=== PATIENT | male | born 1965 ===

== ENCOUNTER 2017-09-14 13:06 | Inpatient (IN) | payer MEDICAID, OTHER ==
[2017-09-14] MEDS ORDERED: Labetalol 5mg/ml (4ml) IVP STA ×2 (13:36→14:36)
[2017-09-14] MEDS ORDERED: Labetalol 5mg/ml (4ml) ONE ×2 (13:38→14:23)
[2017-09-14 13:40] LABS: BASO # 0.1 K/uL (0.0-0.2); BASO % 1.2 % (0.0-2.0); EOS # 0.1 K/uL (0.0-0.7); EOS % 0.7 % (0.0-4.0); HEMOGLOBIN 14.3 g/dL (12.0-18.0); LYMPH # 2.8 K/uL (1.0-4.3); LYMPH % 27.4 % (20.0-40.0); MEAN CELL VOLUME 89.3 fl (80.0-94.0); MEAN CORPUSCULAR HEMOGLOBIN 30.4 pg (27.0-31.0); MEAN PLATELET VOLUME 8.6 fl (7.2-11.7); MONO # 0.8 K/uL (0.0-0.8); MONO % 7.5 % (0.0-10.0); NEUT # 6.5 K/uL (1.8-7.0); NEUT % 63.2 % (50.0-75.0); NRBC % 0.1 % (0.0-0.0); RBC 4.72 Mil/uL (4.40-5.90); RED CELL DISTRIBUTION WIDTH 13.7 % (11.5-14.5); WHITE BLOOD COUNT 10.3 K/uL (4.8-10.8)
[2017-09-14 13:54] LABS: ALB/GLOB RATIO 1.2 (1.0-2.1); ALBUMIN 4.9 g/dL (3.5-5.0); ALT/SGPT 30 U/L (21-72); AST/SGOT 30 U/L (17-59); BLOOD UREA NITROGEN 21 mg/dl (9-20); CALCIUM 9.2 mg/dL (8.4-10.2); GFR AFRICAN-AMERICAN 43; GFR NON-AFRICAN AMERICAN 36
[2017-09-14] MEDS ORDERED: Labetalol 5 mg/ml Inj 20ML IVP STA (14:22)
--- NOTE | 2017-09-14 14:29 | ED PDOC ---
HPI: Altered Mental Status Time Seen by Provider: 09/14/17 13:23 Chief Complaint (Nursing): Altered Mental Status Chief Complaint (Provider): Altered Mental Status History Per: Patient (Altered Mental Status) Onset/Duration Of Symptoms: Days (x today) Current Symptoms Are (Timing): Still Present Additional Complaint(s): Tex is a 52 year old male, with a past medical history of alcohol abuse, seizures, hypertension and intraparachymal bleed from trauma who presents to the emergency department via EMS for medical evaluation. As per EMS, patient was in the homeless long-term where he was having a seizure. Patient was also having seizures here. Patient is unable to answer questions secondary to seizure and altered mental status. Patient is compulsive where his head is tolerating to the left, mouth is drooling, clutch at his mouth, and arms clutch. PMD: No Family Provider Past Medical History Reviewed: Historical Data, Nursing Documentation, Vital Signs Vital Signs: Last Vital Signs Temp 98.6 F 09/14/17 13:15 Pulse 98 H 09/14/17 13:50 Resp 18 09/14/17 13:50 BP 168/112 H 09/14/17 13:50 Pulse Ox 100 09/14/17 13:50 - Medical History PMH: HTN - Family History Family History: States: No Known Family Hx - Immunization History Hx Tetanus Toxoid Vaccination: No Hx Influenza Vaccination: Yes Hx Pneumococcal Vaccination: No - Home Medications Home Medications: Ambulatory Orders Medication Instructions Recorded Lisinopril [Zestril] 2.5 mg PO DAILY #30 tab 01/21/16 amLODIPine [Norvasc] 10 mg PO DAILY #30 tab 01/21/16 hydrALAZINE [Apresoline] 25 mg PO Q6H #120 tab 01/21/16 - Allergies Allergies/Adverse Reactions: Allergies Allergy/AdvReac Type Severity Reaction Status Date / Time No Known Allergies Allergy Verified 10/22/16 17:17 Review of Systems Review Of Systems: ROS cannot be obtained secondary to pt's inabilty to answer questions. (secondary to seizure, altered mental status.) Physical Exam - Reviewed Nursing Documentation Reviewed: Yes Vital Signs Reviewed: Yes - Physical Exam Appears: Positive for: In Acute Distress Head Exam: Positive for: ATRAUMATIC Skin: Positive for: Normal Color Eye Exam: Positive for: Normal appearance, PERRL ENT: Positive for: Normal ENT Inspection Neck: Positive for: Normal Respiratory: Positive for: Normal Breath Sounds (Lungs clear). Negative for: Respiratory Distress Pulses-Radial (L): 2+ Pulses-Radial (R): 2+ Gastrointestinal/Abdominal: Positive for: Normal Exam. Negative for: Tenderness , Distended Back: Positive for: Normal Inspection Neurologic/Psych: Positive for: Other (Seizing on initial exam; contractions of upper and lower extremities; drooling; eyes rolled ba ck) - Laboratory Results Result Diagrams: 09/14/17 13:30 09/14/17 13:30 - ECG ECG Rhythm: Positive for: Sinus Tachycardia Rate: 124 O2 Sat by Pulse Oximetry: 100 (RA) Pulse Ox Interpretation: Normal - Critical Care Total Time (In Min): 30 Medical Decision Making Medical Decision Making: Time: 13:27 DDx: Status Epilepticus, vs Hypertensive Urgency vs ICH vs Alcohol Withdrawal Plan: - CT Head without Contrast - EKG - Alcohol Serum - CMP - Creatine Phosphokinase - Phenytoin - Drug Screen, Urine - Magnesium - CBC - Ativan 2mg IVP STAT - Urinalysis Time: 13:36 - Ativan 2mg IVP STAT - Labetalol Patient was given Ativan 2 mg IV, but patient continued to have seizures. Ativan and Labetolol 20mg IV was administered to patient. PROCEDURE: CT HEAD WITHOUT CONTRAST. IMPRESSION: No acute intracranial hemorrhage Partially cystic encephalomalacia left posterior temporoparietal watershed zone which extends from the surface of the overlying cortex at to the level of the of ventricular surface with localized ex vacuo dilatation of the right atrium and right occipital horn. . Subcortical and deeper white matter gliosis extends superiorly into the posterior superior parietal region. Findings are of uncertain etiology though may represent sequela of chronic ischemia or possibly old trauma however the clinical correlation recommended. Additionally, there are mild to moderate diffuse/confluent chronic periventricular white matter ischemic changes that extend peripherally into the deep and subcortical white matter both cerebral hemispheres Atrophy. 3:05PM - Patient's blood pressure elevated back up to 180/130 after Labetolol 20mg IV x 2. Currently still post-ictal. CT results noted above and reviewed. Paged the ICU for admission. 3:54PM - Case discussed with Dr. Garibay, Neurology, who recommended Keppra 1gm IV, an EEG, and she will consult. Case discussed with Dr. Zamora, ICU physician, who accepted patient to the ICU. Case discussed with Dr. Aries Blevins who will accept to his service. Scribe Attestation: Documented by Tawanda Veronica, acting as a scribe for Manuel Cabral DO Provider Scribe Attestation: All medical record entries made by the Scribe were at my direction and personally dictated by me. I have reviewed the chart and agree that the record accurately reflects my personal performance of the history, physical exam, medical decision making, and the department course for this patient. I have also personally directed, reviewed, and agree with the discharge instructions and disposition. Disposition - Clinical Impression Clinical Impression: Altered mental status, Hypertensive emergency, Status epilepticus - Disposition Disposition Time: 15:58 Condition: CRITICAL Forms: [facility] ([place]) - Pt Status Changed To: Hospital Disposition Of: Inpatient - Admit Certification Admit to Inpatient:: After my assessment, the patient will require hospitalization for at least two midnights. This is because of the severity of symptoms shown, intensity of services needed, and/or the medical risk in this patient being treated as an outpatient. - POA Present On Arrival: None
--- NOTE | 2017-09-14 14:50 | CT ---
PROCEDURE: CT HEAD WITHOUT CONTRAST. HISTORY: Seizure COMPARISON: None available. TECHNIQUE: Axial computed tomography images were obtained through the head/brain without intravenous contrast. Radiation dose: Total exam DLP = 921.40 mGy-cm. This CT exam was performed using one or more of the following dose reduction techniques: Automated exposure control, adjustment of the mA and/or kV according to patient size, and/or use of iterative reconstruction technique. FINDINGS: HEMORRHAGE: No acute parenchymal, subarachnoid or extra-axial hemorrhage. BRAIN: There is a localized area of partially cystic encephalomalacia left posterior temporoparietal watershed zone which extends from the surface of the overlying cortex at to the level of the of ventricular surface with localized ex vacuo dilatation of the right atrium and right occipital horn. . Subcortical and deeper white matter gliosis extends superiorly into the posterior superior parietal region. Findings are of uncertain etiology though may represent sequela of chronic ischemia or possibly old trauma however the clinical correlation recommended. Additionally, there are mild to moderate diffuse/confluent chronic periventricular white matter ischemic changes that extend peripherally into the deep and subcortical white matter both cerebral hemispheres as well. Mild generalized volume loss. VENTRICLES: No obstructive hydrocephalus. CALVARIUM: Calvarium appears grossly intact. . There is mild left PARANASAL SINUSES: Unremarkable as visualized. No significant inflammatory changes. MASTOID AIR CELLS: Unremarkable as visualized. No inflammatory changes. OTHER FINDINGS: None. IMPRESSION: No acute intracranial hemorrhage. Partially cystic encephalomalacia left posterior temporoparietal watershed zone which extends from the surface of the overlying cortex at to the level of the of ventricular surface with localized ex vacuo dilatation of the right atrium and right occipital horn. . Subcortical and deeper white matter gliosis extends superiorly into the posterior superior parietal region. Findings are of uncertain etiology though may represent sequela of chronic ischemia or possibly old trauma however the clinical correlation recommended. Additionally, there are mild to moderate diffuse/confluent chronic periventricular white matter ischemic changes that extend peripherally into the deep and subcortical white matter both cerebral hemispheres Atrophy.
[2017-09-14] MEDS ORDERED: Potassium CL 10 MEQ/50 ML 50 ML IVPB ONE (15:08)
[2017-09-14] MEDS ORDERED: Nicardipine 20 MG/200 ML 20 MG/200 ML BAG ONE ×2 (15:10→19:53)
[2017-09-14] MEDS: Nicardipine 20 MG/200 ML 20 MG/200 ML BAG IV SCH ×2 (15:14→19:54)
[2017-09-14] MEDS ORDERED: Nicardipine HCl 40 MG/200 ML 40 MG/200 ML SOL IV SCH (15:15)
[2017-09-14] MEDS ORDERED: levETIRAcetam 1,000 MG in Sodium Chloride 0.9% 100 ML IVPB ONE (15:52)
[2017-09-14] MEDS ORDERED: Potassium CL 10 MEQ/50 ML 50 ML ONE (16:34)
[2017-09-14 17:44] LABS: BARBITURATES, UR NEGATIVE (NEGATIVE); BENZODIAZEPINES, UR NEGATIVE (NEGATIVE); OPIATES, UR NEGATIVE (NEGATIVE); PHENCYCLIDINE, UR NEGATIVE (NEGATIVE)
[2017-09-14 17:53] LABS: SQUAMOUS EPITHIAL < 1 /hpf (0-5); URINE BILIRUBIN NEGATIVE (NEGATIVE); URINE BLOOD NEGATIVE (NEGATIVE); URINE CLARITY CLEAR (Clear); URINE COLOR YELLOW (YELLOW); URINE GLUCOSE (UA) NEG (Normal); URINE LEUKOCYTE ESTERASE NEG Leu/uL (Negative); URINE NITRATE NEGATIVE (NEGATIVE); URINE PROTEIN 100 mg/dL (NEGATIVE); URINE UROBILINOGEN 0.2-1.0 mg/dL (0.2-1.0)
--- NOTE | 2017-09-14 18:42 | CP.CCUPN ---
CCU Subjective - Physician Review Subjective (Free Text): 09/14/17 18:42 The patient was Seen/interviewed and examined by me at the bedside during ICU round, Medical records reviewed and Management issues were discussed and formulated with the house staff. Events reviewed 52 Years old Male 52 year old male, with a past medical history of alcohol abuse , seizures, hypertension and intraparachymal bleed from trauma who presents to the emergency department via EMS for medical evaluation. As per EMS, patient was in the homeless halfway where he was having a seizure. In the Emergency department, he devolved another seizures, received Ativan Head CT scan was negative for bleed, neurology consulted Also BP elevated, received Labetolol 20mg IV x 2, Patient's blood pressure elevated back up to 180/130 so he was started on cardene drip. On my evaluation, he is lethergic, Post Ictal, hemodynamically improved] Afebrile, NSR on the monitor Labs revealed worsening renal function BUN/Cr up to 21/2.0, CPK level 315. Urine tox negative Critical Care Time Spent (in minutes): 30 CCU Objective - Vital Signs / Intake & Output Vital Signs (Last 4 hours): Vital Signs Pulse Pulse Ox 09/14/17 15:58 124 H 100 Intake and Output (Last 8hrs): Intake & Output 09/14/17 09/14/17 09/14/17 06:59 14:59 22:59 Weight 170 lb - Physical Exam Physical Exam Limitations: Positive for: Altered Mental Status, Clinical Condition Head: Positive for: Atraumatic, Normocephalic. Negative for: Tenderness, Contusion Pupils: Positive for: PERRL. Negative for: Sluggish, Non-Reactive Extroacular Muscles: Positive for: EOMI Conjunctiva: Positive for: Normal. Negative for: Injected, Icteric Ears: Positive for: Normal Mouth: Positive for: Moist Mucous Membranes Nose (External): Positive for: Atraumatic. Negative for: Abrasion Nose (Internal): Positive for: Normal Inspection Neck: Positive for: Normal Range of Motion, Trachea Midline. Negative for: Meningeal Signs, MIDLINE TENDERNESS, Paraspinal Tenderness, JVD, Lymphadenopathy , Bruit, Other Respiratory/Chest: Positive for: Clear to Auscultation, Good Air Exchange. Negative for: Respiratory Distress, Accessory Muscle Use, Wheezes, Rales, Rhonchi Cardiovascular: Positive for: Regular Rate and Rhythm, Normal S1, S2, Tachycardic. Negative for: Murmurs, Bradycardic Abdomen: Positive for: Normal Bowel Sounds. Negative for: Tenderness, Distention Psychiatric: Positive for: Intoxicated, Lethargic - Medications Active Medications: Active Medications Generic Name Dose Route Start Last Admin Trade Name Sterlingq PRN Reason Stop Dose Admin Nicardipine HCl 20 mg in 200 mls @ 50 mls/hr 09/14/17 15:15 09/14/17 15:14 Cardene Iv Premix IV 5 mg/hr .Q4H JESSICA 50 mls/hr Protocol Administration 5 MG/HR - Patient Studies Lab Studies: Lab Studies 09/14/17 09/14/17 09/14/17 Range/Units 17:25 17:25 15:59 WBC (4.8-10.8) K/uL RBC (4.40-5.90) Mil/uL Hgb (12.0-18.0) g/dL Hct (35.0-51.0) % MCV (80.0-94.0) fl MCH (27.0-31.0) pg MCHC (33.0-37.0) g/dL RDW (11.5-14.5) % Plt Count (130-400) K/uL MPV (7.2-11.7) fl Neut % (Auto) (50.0-75.0) % Lymph % (Auto) (20.0-40.0) % [place] % (Auto) (0.0-10.0) % Eos % (Auto) (0.0-4.0) % Baso % (Auto) (0.0-2.0) % Neut # (Auto) (1.8-7.0) K/uL Lymph # (Auto) (1.0-4.3) K/uL [place] # (Auto) (0.0-0.8) K/uL Eos # (Auto) (0.0-0.7) K/uL Baso # (Auto) (0.0-0.2) K/uL Sodium (132-148) mmol/l Potassium (3.6-5.0) MMOL/L Chloride (98-107) mmol/L Carbon Dioxide (22-30) mmol/L Anion Gap (10-20) BUN (9-20) mg/dl Creatinine (0.8-1.5) mg/dl Est GFR ( Amer) Est GFR (Non-Af Amer) POC Glucose (mg/dL) (65-110) mg/dL Random Glucose (75-110) mg/dL Calcium (8.4-10.2) mg/dL Magnesium (1.6-2.3) MG/DL Total Bilirubin (0.2-1.3) mg/dl AST (17-59) U/L ALT (21-72) U/L Alkaline Phosphatase (38-126) U/L Total Creatine Kinase (55-170) U/L Total Protein (6.3-8.2) G/DL Albumin (3.5-5.0) g/dL Globulin (2.2-3.9) gm/dL Albumin/Globulin Ratio (1.0-2.1) Urine Color Yellow (YELLOW) Urine Clarity Clear (Clear) Urine pH 6.0 (5.0-8.0) Ur Specific [place] 1.012 (1.003-1.030) Urine Protein 100 (NEGATIVE) mg/dL Urine Glucose (UA) Neg (Normal) mg/dL Urine Ketones Negative (NEGATIVE) mg/dL Urine Blood Negative (NEGATIVE) Urine Nitrate Negative (NEGATIVE) Urine Bilirubin Negative (NEGATIVE) Urine Urobilinogen 0.2-1.0 (0.2-1.0) mg/dL Ur Leukocyte Esterase Neg (Negative) John/uL Urine RBC (Auto) 1 (0-3) /hpf Urine Microscopic WBC 1 (0-5) /hpf Ur Squamous Epith Cells < 1 (0-5) /hpf Urine Opiates Screen Negative (NEGATIVE) Urine Methadone Screen Negative (NEGATIVE) Ur Barbiturates Screen Negative (NEGATIVE) Phenytoin < 3.0 L (10-20) ug/ML Ur Phencyclidine Scrn Negative (NEGATIVE) Ur Amphetamines Screen Negative (NEGATIVE) U Benzodiazepines Scrn Negative (NEGATIVE) U Oth Cocaine Metabols Negative (NEGATIVE) U Cannabinoids Screen Negative (NEGATIVE) Alcohol, Quantitative (0-10) mg/dl 09/14/17 09/14/17 09/14/17 Range/Units 13:35 13:30 13:30 WBC 10.3 (4.8-10.8) K/uL RBC 4.72 (4.40-5.90) Mil/uL Hgb 14.3 (12.0-18.0) g/dL Hct 42.1 (35.0-51.0) % MCV 89.3 (80.0-94.0) fl MCH 30.4 (27.0-31.0) pg MCHC 34.0 (33.0-37.0) g/dL RDW 13.7 (11.5-14.5) % Plt Count 278 (130-400) K/uL MPV 8.6 (7.2-11.7) fl Neut % (Auto) 63.2 (50.0-75.0) % Lymph % (Auto) 27.4 (20.0-40.0) % [place] % (Auto) 7.5 (0.0-10.0) % Eos % (Auto) 0.7 (0.0-4.0) % Baso % (Auto) 1.2 (0.0-2.0) % Neut # (Auto) 6.5 (1.8-7.0) K/uL Lymph # (Auto) 2.8 (1.0-4.3) K/uL [place] # (Auto) 0.8 (0.0-0.8) K/uL Eos # (Auto) 0.1 (0.0-0.7) K/uL Baso # (Auto) 0.1 (0.0-0.2) K/uL Sodium 142 (132-148) mmol/l Potassium 3.5 L (3.6-5.0) MMOL/L Chloride 99 (98-107) mmol/L Carbon Dioxide 29 (22-30) mmol/L Anion Gap 18 (10-20) BUN 21 H (9-20) mg/dl Creatinine 2.0 H (0.8-1.5) mg/dl Est GFR ( Amer) 43 Est GFR (Non-Af Amer) 36 POC Glucose (mg/dL) 135 H (65-110) mg/dL Random Glucose 181 H (75-110) mg/dL Calcium 9.2 (8.4-10.2) mg/dL Magnesium 2.0 (1.6-2.3) MG/DL Total Bilirubin 0.6 (0.2-1.3) mg/dl AST 30 (17-59) U/L ALT 30 (21-72) U/L Alkaline Phosphatase 69 (38-126) U/L Total Creatine Kinase 318 H (55-170) U/L Total Protein 8.9 H (6.3-8.2) G/DL Albumin 4.9 (3.5-5.0) g/dL Globulin 3.9 (2.2-3.9) gm/dL Albumin/Globulin Ratio 1.2 (1.0-2.1) Urine Color (YELLOW) Urine Clarity (Clear) Urine pH (5.0-8.0) Ur Specific [place] (1.003-1.030) Urine Protein (NEGATIVE) mg/dL Urine Glucose (UA) (Normal) mg/dL Urine Ketones (NEGATIVE) mg/dL Urine Blood (NEGATIVE) Urine Nitrate (NEGATIVE) Urine Bilirubin (NEGATIVE) Urine Urobilinogen (0.2-1.0) mg/dL Ur Leukocyte Esterase (Negative) John/uL Urine RBC (Auto) (0-3) /hpf Urine Microscopic WBC (0-5) /hpf Ur Squamous Epith Cells (0-5) /hpf Urine Opiates Screen (NEGATIVE) Urine Methadone Screen (NEGATIVE) Ur Barbiturates Screen (NEGATIVE) Phenytoin (10-20) ug/ML Ur Phencyclidine Scrn (NEGATIVE) Ur Amphetamines Screen (NEGATIVE) U Benzodiazepines Scrn (NEGATIVE) U Oth Cocaine Metabols (NEGATIVE) U Cannabinoids Screen (NEGATIVE) Alcohol, Quantitative < 10 (0-10) mg/dl Laboratory Results - last 24 hr 09/14/17 09/14/17 09/14/17 13:30 13:30 13:35 WBC 10.3 RBC 4.72 Hgb 14.3 Hct 42.1 MCV 89.3 MCH 30.4 MCHC 34.0 RDW 13.7 Plt Count 278 MPV 8.6 Neut % (Auto) 63.2 Lymph % (Auto) 27.4 [place] % (Auto) 7.5 Eos % (Auto) 0.7 Baso % (Auto) 1.2 Neut # (Auto) 6.5 Lymph # (Auto) 2.8 [place] # (Auto) 0.8 Eos # (Auto) 0.1 Baso # (Auto) 0.1 Sodium 142 Potassium 3.5 L Chloride 99 Carbon Dioxide 29 Anion Gap 18 BUN 21 H Creatinine 2.0 H Est GFR ( Amer) 43 Est GFR (Non-Af Amer) 36 POC Glucose (mg/dL) 135 H Random Glucose 181 H Calcium 9.2 Magnesium 2.0 Total Bilirubin 0.6 AST 30 ALT 30 Alkaline Phosphatase 69 Total Creatine Kinase 318 H Total Protein 8.9 H Albumin 4.9 Globulin 3.9 Albumin/Globulin Ratio 1.2 Urine Color Urine Clarity Urine pH Ur Specific [place] Urine Protein Urine Glucose (UA) Urine Ketones Urine Blood Urine Nitrate Urine Bilirubin Urine Urobilinogen Ur Leukocyte Esterase Urine RBC (Auto) Urine Microscopic WBC Ur Squamous Epith Cells Urine Opiates Screen Urine Methadone Screen Ur Barbiturates Screen Phenytoin Ur Phencyclidine Scrn Ur Amphetamines Screen U Benzodiazepines Scrn U Oth Cocaine Metabols U Cannabinoids Screen Alcohol, Quantitative < 10 09/14/17 09/14/17 09/14/17 15:59 17:25 17:25 WBC RBC Hgb Hct MCV MCH MCHC RDW Plt Count MPV Neut % (Auto) Lymph % (Auto) [place] % (Auto) Eos % (Auto) Baso % (Auto) Neut # (Auto) Lymph # (Auto) [place] # (Auto) Eos # (Auto) Baso # (Auto) Sodium Potassium Chloride Carbon Dioxide Anion Gap BUN Creatinine Est GFR ( Amer) Est GFR (Non-Af Amer) POC Glucose (mg/dL) Random Glucose Calcium Magnesium Total Bilirubin AST ALT Alkaline Phosphatase Total Creatine Kinase Total Protein Albumin Globulin Albumin/Globulin Ratio Urine Color Yellow Urine Clarity Clear Urine pH 6.0 Ur Specific [place] 1.012 Urine Protein 100 Urine Glucose (UA) Neg Urine Ketones Negative Urine Blood Negative Urine Nitrate Negative Urine Bilirubin Negative Urine Urobilinogen 0.2-1.0 Ur Leukocyte Esterase Neg Urine RBC (Auto) 1 Urine Microscopic WBC 1 Ur Squamous Epith Cells < 1 Urine Opiates Screen Negative Urine Methadone Screen Negative Ur Barbiturates Screen Negative Phenytoin < 3.0 L Ur Phencyclidine Scrn Negative Ur Amphetamines Screen Negative U Benzodiazepines Scrn Negative U Oth Cocaine Metabols Negative U Cannabinoids Screen Negative Alcohol, Quantitative EKG/Cardiology Studies: Cardiology / EKG Studies 09/14/17 13:27 ELECTROCARDIOGRAM Stat Comment: Mode Of Transportation: STRETCHER Reason For Exam: seizure Review of Systems - Review of Systems Systems not reviewed;Unavailable: Altered Mental Status Assessment/Plan (1) Altered mental status Current Visit: Yes Status: Acute Comment: - Admit to ICU for frequent neuro checks - follow CBC/CMP/HbA1c - Neurology Consult appreciated - Continue aspirin - Continue Lipitor - EEG (2) Hypertensive emergency Current Visit: Yes Status: Acute Comment: Wean Off Cardene drip, resume home medications (3) Status epilepticus Current Visit: Yes Status: Acute Comment: Head CT scan negative Admited to ICU for frequent neuro checks Evaluated by neuro and was started on Keppra EEG Maintain Seizure and aspiration precautions (4) JIMMY (acute kidney injury) Current Visit: Yes Status: Acute Comment: IV Hydrations Off all nephrotoxic medications /NSAIDs Renally adjust medication dose Monitor Input/Output BP and Glycemic control (5) H/O ETOH abuse Current Visit: No Status: Acute (6) Hypertensive urgency Current Visit: No Status: Acute (7) Prophylactic measure Current Visit: No Status: Acute
[2017-09-14] MEDS ORDERED: Sodium Chloride 0.9% 1,000 ML IV SCH (19:45)
[2017-09-14] MEDS ORDERED: levETIRAcetam 500 MG in Sodium Chloride 0.9% 100 ML IVPB ONE ×2 (19:49→21:00)
[2017-09-14] MEDS ORDERED: Multivitamin (MVI) 10 ML, Thiamine 100 MG, Folic Acid 1 MG in Dextrose 5%/0.45% NS 1,00... IV ONE (22:11)
[2017-09-15] MEDS ORDERED: Potassium Chloride 20 MEQ in Sodium Chloride 0.45% 1,000 ML IV SCH (05:15)
[2017-09-15 05:18] LABS: BASO # 0.1 K/uL (0.0-0.2); BASO % 0.5 % (0.0-2.0); EOS % 0.2 % (0.0-4.0); HEMOGLOBIN 14.3 g/dL (12.0-18.0); LYMPH # 1.4 K/uL (1.0-4.3); LYMPH % 13.6 % (20.0-40.0); MEAN CELL VOLUME 90.2 fl (80.0-94.0); MEAN CORPUSCULAR HEMOGLOBIN 30.1 pg (27.0-31.0); MEAN CORPUSCULAR HGB CONC 33.4 g/dL (33.0-37.0); MEAN PLATELET VOLUME 8.7 fl (7.2-11.7); MONO # 1.1 K/uL (0.0-0.8); MONO % 10.3 % (0.0-10.0); NEUT # 7.9 K/uL (1.8-7.0); NEUT % 75.4 % (50.0-75.0); RBC 4.76 Mil/uL (4.40-5.90); RED CELL DISTRIBUTION WIDTH 13.6 % (11.5-14.5); WHITE BLOOD COUNT 10.5 K/uL (4.8-10.8)
[2017-09-15 05:36] LABS: ALB/GLOB RATIO 1.2 (1.0-2.1); ALBUMIN 4.1 g/dL (3.5-5.0); CALCIUM 8.7 mg/dL (8.4-10.2)
[2017-09-15] MEDS ORDERED: Multivitamin (MVI) 10 ML, Thiamine 100 MG, Folic Acid 1 MG in Dextrose 5%/0.45% NS 1,00... IV ONE (05:37)
--- NOTE | 2017-09-15 08:43 | CARD ---
APPROVED REPORT EKG Measurement Heart [id number] <Conclusion> Sinus tachycardia with premature atrial complexes Biatrial enlargement Left ventricular hypertrophy Abnormal ECG
[2017-09-15] MEDS ORDERED: Nicardipine 20 MG/200 ML 20 MG/200 ML BAG IV ONE (10:00)
--- NOTE | 2017-09-15 10:43 | CP.PCM.CON ---
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 Patient says he drinks beer daily, quantity is not known. His last beer was yesterday, immediately before coming to the [facility], and he denies any IVDA. Patient is homeless, lives in a penit[place]iary, and says he has had seizures for many years. There is no aura, no report of confusion or headache before the seizures. Yesterday, he was started on Keppra IV, and has not had any seizures since then. In the ICU, his blood pressure is very high, and is above 160/100. Today, he is able to answer questions appropriately, and follow commands. PMH/PSH: Non contributory FH/SH: LIves in a penitentiary. No tobacco. Significant alcohol intake. All: nkda. On exam: AAOx3. Pupils 3mm-2mm with light. EOMI. CN 2-12 normal. Speech fluent. Can name and repeat. Follows 3 step commands. Motor: strength normal. Sensory: normal. Gait; normal. +2 dtr ul and ll bl. Toes downgoing. No clonus. Past Patient History - Infectious Disease Hx of Infectious Diseases: None - Past Medical History & Family History Past Medical History?: Yes - Past Social History Smoking Status: Current Some Days Smoker - CARDIAC Hx Hypertension: Yes - PULMONARY Hx Respiratory Disorders: No - NEUROLOGICAL Hx Neurological Disorder: Yes - HEENT Hx HEENT Problems: No - RENAL Hx Chronic Kidney Disease: No - ENDOCRINE/METABOLIC Hx Endocrine Disorders: No - HEMATOLOGICAL/ONCOLOGICAL Hx Hepatitis C: Yes - INTEGUMENTARY Hx Dermatological Problems: No - MUSCULOSKELETAL/RHEUMATOLOGICAL Hx Falls: No - GENITOURINARY/GYNECOLOGICAL Hx Genitourinary Disorders: No - PSYCHIATRIC Hx Substance Use: Yes (previous substance abuse, unknown drugs) - SURGICAL HISTORY Hx Surgeries: No - ANESTHESIA Hx Anesthesia: No Hx Anesthesia Reactions: (unknown) Meds Allergies/Adverse Reactions: Allergies Allergy/AdvReac Type Severity Reaction Status Date / Time No Known Allergies Allergy Verified 10/22/16 17:17 - Medications Medications: Current Medications Nicardipine HCl (Cardene Iv Premix) 20 mg in 200 mls @ 50 mls/hr IV .Q4H JESSICA; 5 MG/HR PRN Reason: Protocol Last Titration: 09/14/17 22:00 Dose: 0 mg/hr, 0 mls/hr Potassium Chloride 20 meq/ (Sodium Chloride) 1,010 mls @ 100 mls/hr IV .Q10H6M JESSICA Stop: 09/16/17 05:02 Lorazepam (Ativan) 2 mg IVP Q6 PRN PRN Reason: Seizure activity Lorazepam (Ativan) 1 mg IVP Q6 PRN PRN Reason: Agitation Results - Vital Signs Recent Vital Signs: Last Vital Signs Temp 98.7 F 09/15/17 08:00 Pulse 82 09/15/17 08:00 Resp 16 09/15/17 08:00 BP 114/25 L 09/15/17 08:00 Pulse Ox 98 09/15/17 08:00 - Labs Result Diagrams: 09/15/17 04:50 09/15/17 04:50 Labs: Laboratory Results - last 24 hr 09/14/17 09/14/17 09/14/17 13:30 13:30 13:35 WBC 10.3 RBC 4.72 Hgb 14.3 Hct 42.1 MCV 89.3 MCH 30.4 MCHC 34.0 RDW 13.7 Plt Count 278 MPV 8.6 Neut % (Auto) 63.2 Lymph % (Auto) 27.4 [place] % (Auto) 7.5 Eos % (Auto) 0.7 Baso % (Auto) 1.2 Neut # (Auto) 6.5 Lymph # (Auto) 2.8 [place] # (Auto) 0.8 Eos # (Auto) 0.1 Baso # (Auto) 0.1 Sodium 142 Potassium 3.5 L Chloride 99 Carbon Dioxide 29 Anion Gap 18 BUN 21 H Creatinine 2.0 H Est GFR ( Amer) 43 Est GFR (Non-Af Amer) 36 POC Glucose (mg/dL) 135 H Random Glucose 181 H Calcium 9.2 Magnesium 2.0 Total Bilirubin 0.6 AST 30 ALT 30 Alkaline Phosphatase 69 Total Creatine Kinase 318 H Total Protein 8.9 H Albumin 4.9 Globulin 3.9 Albumin/Globulin Ratio 1.2 Urine Color Urine Clarity Urine pH Ur Specific [place] Urine Protein Urine Glucose (UA) Urine Ketones Urine Blood Urine Nitrate Urine Bilirubin Urine Urobilinogen Ur Leukocyte Esterase Urine RBC (Auto) Urine Microscopic WBC Ur Squamous Epith Cells Urine Opiates Screen Urine Methadone Screen Ur Barbiturates Screen Phenytoin Ur Phencyclidine Scrn Ur Amphetamines Screen U Benzodiazepines Scrn U Oth Cocaine Metabols U Cannabinoids Screen Alcohol, Quantitative < 10 09/14/17 09/14/17 09/14/17 15:59 17:25 17:25 WBC RBC Hgb Hct MCV MCH MCHC RDW Plt Count MPV Neut % (Auto) Lymph % (Auto) [place] % (Auto) Eos % (Auto) Baso % (Auto) Neut # (Auto) Lymph # (Auto) [place] # (Auto) Eos # (Auto) Baso # (Auto) Sodium Potassium Chloride Carbon Dioxide Anion Gap BUN Creatinine Est GFR ( Amer) Est GFR (Non-Af Amer) POC Glucose (mg/dL) Random Glucose Calcium Magnesium Total Bilirubin AST ALT Alkaline Phosphatase Total Creatine Kinase Total Protein Albumin Globulin Albumin/Globulin Ratio Urine Color Yellow Urine Clarity Clear Urine pH 6.0 Ur Specific [place] 1.012 Urine Protein 100 Urine Glucose (UA) Neg Urine Ketones Negative Urine Blood Negative Urine Nitrate Negative Urine Bilirubin Negative Urine Urobilinogen 0.2-1.0 Ur Leukocyte Esterase Neg Urine RBC (Auto) 1 Urine Microscopic WBC 1 Ur Squamous Epith Cells < 1 Urine Opiates Screen Negative Urine Methadone Screen Negative Ur Barbiturates Screen Negative Phenytoin < 3.0 L Ur Phencyclidine Scrn Negative Ur Amphetamines Screen Negative U Benzodiazepines Scrn Negative U Oth Cocaine Metabols Negative U Cannabinoids Screen Negative Alcohol, Quantitative 09/15/17 09/15/17 04:50 04:50 WBC 10.5 RBC 4.76 Hgb 14.3 Hct 43.0 MCV 90.2 MCH 30.1 MCHC 33.4 RDW 13.6 Plt Count 197 MPV 8.7 Neut % (Auto) 75.4 H Lymph % (Auto) 13.6 L [place] % (Auto) 10.3 H Eos % (Auto) 0.2 Baso % (Auto) 0.5 Neut # (Auto) 7.9 H Lymph # (Auto) 1.4 [place] # (Auto) 1.1 H Eos # (Auto) 0.0 Baso # (Auto) 0.1 Sodium 139 Potassium 4.1 Chloride 100 Carbon Dioxide 28 Anion Gap 15 BUN 19 Creatinine 1.6 H Est GFR ( Amer) 56 Est GFR (Non-Af Amer) 46 POC Glucose (mg/dL) Random Glucose 122 H Calcium 8.7 Magnesium Total Bilirubin 0.8 AST 25 ALT 28 Alkaline Phosphatase 59 Total Creatine Kinase 260 H Total Protein 7.6 Albumin 4.1 Globulin 3.5 Albumin/Globulin Ratio 1.2 Urine Color Urine Clarity Urine pH Ur Specific [place] Urine Protein Urine Glucose (UA) Urine Ketones Urine Blood Urine Nitrate Urine Bilirubin Urine Urobilinogen Ur Leukocyte Esterase Urine RBC (Auto) Urine Microscopic WBC Ur Squamous Epith Cells Urine Opiates Screen Urine Methadone Screen Ur Barbiturates Screen Phenytoin Ur Phencyclidine Scrn Ur Amphetamines Screen U Benzodiazepines Scrn U Oth Cocaine Metabols U Cannabinoids Screen Alcohol, Quantitative Assessment & Plan - Assessment and Plan (Free Text) Assessment: 52 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 He will need to be on antiepileptic medications but I feel that keppra should be changed to depakote 1000 mg IV now and 500 mg bid. EEG pending.
--- NOTE | 2017-09-15 14:21 | CP.PCM.HP ---
History of Present Illness - History of Present Illness History of Present Illness: 52 y/o M, Hx of Seizure Disorder, Hepatitis C, HYN, brought by EMS from homeless group home to ER [facility] [place] to be evaluated for AMS on DOA with no improvement. Found to have AMS associated to confusion, unable to follows commands, denied fever, chills. Worsening symptoms: While in the ER Pt was witnessed of having tonic movements and stiffness, unable to ambulate. High BP 208/184, HR 136 Aggravated factor: Non verbal. No fever, chills, abdominal pain. vomiting/diarrhea, CP, SOB. EKG Showed: Sinus tachycardia with PAC. L ventricular hypertrophy. Head CT: No Hemorrhage. Brain: Localized area of partially cystic encephalomalacia left. Present on Admission - Present on Admission Any Indicators Present on Admission: No Review of Systems - Constitutional Constitutional: Other (negative) - EENT Eyes: Other (negative) Ears: Other (negative) Nose/Mouth/Throat: Other (negative) - Cardiovascular Cardiovascular: Other (negative) - Respiratory Respiratory: Other (negative) - Gastrointestinal Gastrointestinal: Other (negative) - Genitourinary Genitourinary: Other (negative) - Musculoskeletal Musculoskeletal: Other (negative) - Integumentary Integumentary: Other (negative) - Neurological Neurological: Confusion, Convulsions - Psychiatric Psychiatric: Anxiety - Endocrine Endocrine: Other (negative) - Hematologic/Lymphatic Hematologic: Other (negative) Past Patient History - Infectious Disease Hx of Infectious Diseases: None - Past Medical History & Family History Past Medical History?: Yes Pertinent Family History: Unknown - Past Social History Smoking Status: Current Some Days Smoker Alcohol: < 2 Drinks/Day Drugs: Denies Home Situation {Lives}: Homeless - CARDIAC Hx Cardiac Disorders: Yes Hx Hypertension: Yes - PULMONARY Hx Respiratory Disorders: No - NEUROLOGICAL Hx Neurological Disorder: Yes Hx Seizures: Yes - HEENT Hx HEENT Problems: No - RENAL Hx Chronic Kidney Disease: No - ENDOCRINE/METABOLIC Hx Endocrine Disorders: No - HEMATOLOGICAL/ONCOLOGICAL Hx Blood Disorders: Yes Hx Hepatitis C: Yes - INTEGUMENTARY Hx Dermatological Problems: No - MUSCULOSKELETAL/RHEUMATOLOGICAL Hx Musculoskeletal Disorders: No Hx Falls: No - GASTROINTESTINAL Hx Gastrointestinal Disorders: No - GENITOURINARY/GYNECOLOGICAL Hx Genitourinary Disorders: No - PSYCHIATRIC Hx Psychophysiologic Disorder: Yes Hx Substance Use: Yes (previous substance abuse, unknown drugs) - SURGICAL HISTORY Hx Surgeries: No - ANESTHESIA Hx Anesthesia: No Hx Anesthesia Reactions: (unknown) Meds Allergies/Adverse Reactions: Allergies Allergy/AdvReac Type Severity Reaction Status Date / Time No Known Allergies Allergy Verified 10/22/16 17:17 Physical Exam - Constitutional Appears: No Acute Distress - Head Exam Head Exam: NORMAL INSPECTION - Eye Exam Eye Exam: PERRL - ENT Exam ENT Exam: Normal Exam - Neck Exam Neck exam: Positive for: Normal Inspection - Respiratory Exam Respiratory Exam: NORMAL BREATHING PATTERN - Cardiovascular Exam Cardiovascular Exam: REGULAR RHYTHM - GI/Abdominal Exam GI & Abdominal Exam: Normal Bowel Sounds, Soft - Extremities Exam Extremities exam: Positive for: normal inspection - Back Exam Back exam: NORMAL INSPECTION - Neurological Exam Neurological exam: Alert Additional comments: Confused at times, able to answer questions, follows commands. - Skin Skin Exam: Warm Results - Vital Signs Recent Vital Signs: Last Vital Signs Temp 99.2 F 09/15/17 12:00 Pulse 76 09/15/17 12:00 Resp 16 09/15/17 12:00 BP 191/75 H 09/15/17 12:00 Pulse Ox 95 09/15/17 12:00 [email or web address] Abbie - Labs Result Diagrams: 09/16/17 04:15 09/16/17 04:15 Labs: Laboratory Results - last 24 hr 09/14/17 09/14/17 09/14/17 15:59 17:25 17:25 WBC RBC Hgb Hct MCV MCH MCHC RDW Plt Count MPV Neut % (Auto) Lymph % (Auto) [place] % (Auto) Eos % (Auto) Baso % (Auto) Neut # (Auto) Lymph # (Auto) [place] # (Auto) Eos # (Auto) Baso # (Auto) Sodium Potassium Chloride Carbon Dioxide Anion Gap BUN Creatinine Est GFR ( Amer) Est GFR (Non-Af Amer) Random Glucose Calcium Total Bilirubin AST ALT Alkaline Phosphatase Total Creatine Kinase Total Protein Albumin Globulin Albumin/Globulin Ratio Urine Color Yellow Urine Clarity Clear Urine pH 6.0 Ur Specific [place] 1.012 Urine Protein 100 Urine Glucose (UA) Neg Urine Ketones Negative Urine Blood Negative Urine Nitrate Negative Urine Bilirubin Negative Urine Urobilinogen 0.2-1.0 Ur Leukocyte Esterase Neg Urine RBC (Auto) 1 Urine Microscopic WBC 1 Ur Squamous Epith Cells < 1 Urine Opiates Screen Negative Urine Methadone Screen Negative Ur Barbiturates Screen Negative Phenytoin < 3.0 L Ur Phencyclidine Scrn Negative Ur Amphetamines Screen Negative U Benzodiazepines Scrn Negative U Oth Cocaine Metabols Negative U Cannabinoids Screen Negative 09/15/17 09/15/17 04:50 04:50 WBC 10.5 RBC 4.76 Hgb 14.3 Hct 43.0 MCV 90.2 MCH 30.1 MCHC 33.4 RDW 13.6 Plt Count 197 MPV 8.7 Neut % (Auto) 75.4 H Lymph % (Auto) 13.6 L [place] % (Auto) 10.3 H Eos % (Auto) 0.2 Baso % (Auto) 0.5 Neut # (Auto) 7.9 H Lymph # (Auto) 1.4 [place] # (Auto) 1.1 H Eos # (Auto) 0.0 Baso # (Auto) 0.1 Sodium 139 Potassium 4.1 Chloride 100 Carbon Dioxide 28 Anion Gap 15 BUN 19 Creatinine 1.6 H Est GFR ( Amer) 56 Est GFR (Non-Af Amer) 46 Random Glucose 122 H Calcium 8.7 Total Bilirubin 0.8 AST 25 ALT 28 Alkaline Phosphatase 59 Total Creatine Kinase 260 H Total Protein 7.6 Albumin 4.1 Globulin 3.5 Albumin/Globulin Ratio 1.2 Urine Color Urine Clarity Urine pH Ur Specific [place] Urine Protein Urine Glucose (UA) Urine Ketones Urine Blood Urine Nitrate Urine Bilirubin Urine Urobilinogen Ur Leukocyte Esterase Urine RBC (Auto) Urine Microscopic WBC Ur Squamous Epith Cells Urine Opiates Screen Urine Methadone Screen Ur Barbiturates Screen Phenytoin Ur Phencyclidine Scrn Ur Amphetamines Screen U Benzodiazepines Scrn U Oth Cocaine Metabols U Cannabinoids Screen reviewed J.P. - EKG Data EKG comments: reviewed J.P. - Imaging and Cardiology CT scan - head Status: Report reviewed by me (Esvin.P.) Assessment & Plan (1) Status epilepticus Status: Acute Priority: High (2) Altered mental status Status: Acute Priority: High (3) Hypertensive emergency Status: Acute Priority: High - Assessment and Plan (Free Text) Plan: BP 191/75, HR 76. MRSA Screening, Continue NC 2 l/m, continue Ativan IV, Cardene Iv, Lopressor IV and rest of Tx. PT, OT eval. ICU Time: 70 min. - Date & Time Date: 09/15/17 Time: 14:00
--- NOTE | 2017-09-15 16:22 | CP.CCUPN ---
CCU Subjective - Physician Review Subjective (Free Text): 09/14/17 18:42 The patient was Seen/interviewed and examined by me at the bedside during ICU round, Medical records reviewed and Management issues were discussed and formulated with the house staff. Events reviewed 50 Years old Male 52 year old male, with a past medical history of alcohol abuse , seizures, hypertension and intraparachymal bleed from trauma who presents to the emergency department yesterfay via EMS for medical evaluation. As per EMS, patient was in the homeless skilled nursing where he was having a seizure. In the Emergency department, he devolved another seizures, received Ativan Head CT scan was negative for bleed, neurology consulted Also BP elevated, received Labetolol 20mg IV x 2, Patient's blood pressure elevated back up to 180/130 so he was started on cardene drip. Upon ICU admission, he is lethergic, Post Ictal, hemodynamically improved] Labs revealed worsening renal function BUN/Cr up to 21/2.0, CPK level 315. Urine tox negative This morning he feels well Clinically improving and hemodynamically improved Cardene drip off Awake, comfortable, NAD Pt AAO x3. Alert, follows some commands Denies any chest pain, SOB or Palpitations Afebrile, NSR on the monitor CCU Objective - Vital Signs / Intake & Output Intake and Output (Last 8hrs): Intake & Output 09/15/17 09/15/17 09/15/17 06:59 14:59 22:59 Intake Total 1025 0 Output Total 1300 Balance -275 0 Intake: IV 875 0 Intake, Piggyback 150 Output: Urine 1300 Urethral (Abel) 1300 - Physical Exam Head: Positive for: Atraumatic, Normocephalic. Negative for: Tenderness, Contusion Pupils: Positive for: PERRL. Negative for: Sluggish, Non-Reactive Extroacular Muscles: Positive for: EOMI Conjunctiva: Positive for: Normal. Negative for: Injected, Icteric Ears: Positive for: Normal Mouth: Positive for: Moist Mucous Membranes Nose (External): Positive for: Atraumatic. Negative for: Abrasion Nose (Internal): Positive for: Normal Inspection Neck: Positive for: Normal Range of Motion, Trachea Midline. Negative for: Meningeal Signs, MIDLINE TENDERNESS, Paraspinal Tenderness, JVD, Lymphadenopathy , Bruit, Other Respiratory/Chest: Positive for: Clear to Auscultation, Good Air Exchange. Negative for: Respiratory Distress, Accessory Muscle Use, Wheezes, Rales, Rhonchi Cardiovascular: Positive for: Regular Rate and Rhythm, Normal S1, S2, Tachycardic. Negative for: Murmurs, Bradycardic Abdomen: Positive for: Normal Bowel Sounds. Negative for: Tenderness, Distention Psychiatric: Positive for: Intoxicated, Lethargic - Medications Active Medications: Active Medications Generic Name Dose Route Start Last Admin Trade Name Freq PRN Reason Stop Dose Admin Nicardipine HCl 20 mg in 200 mls @ 50 mls/hr 09/14/17 15:15 09/15/17 10:00 Cardene Iv Premix IV 5 mg/hr .Q4H JESSICA 50 mls/hr Protocol Titration 5 MG/HR Potassium Chloride 20 meq/ 1,010 mls @ 100 mls/hr 09/15/17 05:15 Sodium Chloride IV 09/16/17 05:02 .Q10H6M JESSICA Lorazepam 2 mg 09/15/17 01:48 Ativan IVP Q6 PRN Seizure activity Lorazepam 1 mg 09/15/17 01:49 Ativan IVP Q6 PRN Agitation - Patient Studies Lab Studies: Lab Studies 09/15/17 09/15/17 09/14/17 Range/Units 04:50 04:50 17:25 WBC 10.5 (4.8-10.8) K/uL RBC 4.76 (4.40-5.90) Mil/uL Hgb 14.3 (12.0-18.0) g/dL Hct 43.0 (35.0-51.0) % MCV 90.2 (80.0-94.0) fl MCH 30.1 (27.0-31.0) pg MCHC 33.4 (33.0-37.0) g/dL RDW 13.6 (11.5-14.5) % Plt Count 197 (130-400) K/uL MPV 8.7 (7.2-11.7) fl Neut % (Auto) 75.4 H (50.0-75.0) % Lymph % (Auto) 13.6 L (20.0-40.0) % [place] % (Auto) 10.3 H (0.0-10.0) % Eos % (Auto) 0.2 (0.0-4.0) % Baso % (Auto) 0.5 (0.0-2.0) % Neut # (Auto) 7.9 H (1.8-7.0) K/uL Lymph # (Auto) 1.4 (1.0-4.3) K/uL [place] # (Auto) 1.1 H (0.0-0.8) K/uL Eos # (Auto) 0.0 (0.0-0.7) K/uL Baso # (Auto) 0.1 (0.0-0.2) K/uL Sodium 139 (132-148) mmol/l Potassium 4.1 (3.6-5.0) MMOL/L Chloride 100 (98-107) mmol/L Carbon Dioxide 28 (22-30) mmol/L Anion Gap 15 (10-20) BUN 19 (9-20) mg/dl Creatinine 1.6 H (0.8-1.5) mg/dl Est GFR ( Amer) 56 Est GFR (Non-Af Amer) 46 Random Glucose 122 H (75-110) mg/dL Calcium 8.7 (8.4-10.2) mg/dL Total Bilirubin 0.8 (0.2-1.3) mg/dl AST 25 (17-59) U/L ALT 28 (21-72) U/L Alkaline Phosphatase 59 (38-126) U/L Total Creatine Kinase 260 H (55-170) U/L Total Protein 7.6 (6.3-8.2) G/DL Albumin 4.1 (3.5-5.0) g/dL Globulin 3.5 (2.2-3.9) gm/dL Albumin/Globulin Ratio 1.2 (1.0-2.1) Urine Color Yellow (YELLOW) Urine Clarity Clear (Clear) Urine pH 6.0 (5.0-8.0) Ur Specific [place] 1.012 (1.003-1.030) Urine Protein 100 (NEGATIVE) mg/dL Urine Glucose (UA) Neg (Normal) mg/dL Urine Ketones Negative (NEGATIVE) mg/dL Urine Blood Negative (NEGATIVE) Urine Nitrate Negative (NEGATIVE) Urine Bilirubin Negative (NEGATIVE) Urine Urobilinogen 0.2-1.0 (0.2-1.0) mg/dL Ur Leukocyte Esterase Neg (Negative) John/uL Urine RBC (Auto) 1 (0-3) /hpf Urine Microscopic WBC 1 (0-5) /hpf Ur Squamous Epith Cells < 1 (0-5) /hpf Urine Opiates Screen (NEGATIVE) Urine Methadone Screen (NEGATIVE) Ur Barbiturates Screen (NEGATIVE) Phenytoin (10-20) ug/ML Ur Phencyclidine Scrn (NEGATIVE) Ur Amphetamines Screen (NEGATIVE) U Benzodiazepines Scrn (NEGATIVE) U Oth Cocaine Metabols (NEGATIVE) U Cannabinoids Screen (NEGATIVE) 09/14/17 09/14/17 Range/Units 17:25 15:59 WBC (4.8-10.8) K/uL RBC (4.40-5.90) Mil/uL Hgb (12.0-18.0) g/dL Hct (35.0-51.0) % MCV (80.0-94.0) fl MCH (27.0-31.0) pg MCHC (33.0-37.0) g/dL RDW (11.5-14.5) % Plt Count (130-400) K/uL MPV (7.2-11.7) fl Neut % (Auto) (50.0-75.0) % Lymph % (Auto) (20.0-40.0) % [place] % (Auto) (0.0-10.0) % Eos % (Auto) (0.0-4.0) % Baso % (Auto) (0.0-2.0) % Neut # (Auto) (1.8-7.0) K/uL Lymph # (Auto) (1.0-4.3) K/uL [place] # (Auto) (0.0-0.8) K/uL Eos # (Auto) (0.0-0.7) K/uL Baso # (Auto) (0.0-0.2) K/uL Sodium (132-148) mmol/l Potassium (3.6-5.0) MMOL/L Chloride (98-107) mmol/L Carbon Dioxide (22-30) mmol/L Anion Gap (10-20) BUN (9-20) mg/dl Creatinine (0.8-1.5) mg/dl Est GFR ( Amer) Est GFR (Non-Af Amer) Random Glucose (75-110) mg/dL Calcium (8.4-10.2) mg/dL Total Bilirubin (0.2-1.3) mg/dl AST (17-59) U/L ALT (21-72) U/L Alkaline Phosphatase (38-126) U/L Total Creatine Kinase (55-170) U/L Total Protein (6.3-8.2) G/DL Albumin (3.5-5.0) g/dL Globulin (2.2-3.9) gm/dL Albumin/Globulin Ratio (1.0-2.1) Urine Color (YELLOW) Urine Clarity (Clear) Urine pH (5.0-8.0) Ur Specific [place] (1.003-1.030) Urine Protein (NEGATIVE) mg/dL Urine Glucose (UA) (Normal) mg/dL Urine Ketones (NEGATIVE) mg/dL Urine Blood (NEGATIVE) Urine Nitrate (NEGATIVE) Urine Bilirubin (NEGATIVE) Urine Urobilinogen (0.2-1.0) mg/dL Ur Leukocyte Esterase (Negative) John/uL Urine RBC (Auto) (0-3) /hpf Urine Microscopic WBC (0-5) /hpf Ur Squamous Epith Cells (0-5) /hpf Urine Opiates Screen Negative (NEGATIVE) Urine Methadone Screen Negative (NEGATIVE) Ur Barbiturates Screen Negative (NEGATIVE) Phenytoin < 3.0 L (10-20) ug/ML Ur Phencyclidine Scrn Negative (NEGATIVE) Ur Amphetamines Screen Negative (NEGATIVE) U Benzodiazepines Scrn Negative (NEGATIVE) U Oth Cocaine Metabols Negative (NEGATIVE) U Cannabinoids Screen Negative (NEGATIVE) Laboratory Results - last 24 hr 09/14/17 09/14/17 09/14/17 15:59 17:25 17:25 WBC RBC Hgb Hct MCV MCH MCHC RDW Plt Count MPV Neut % (Auto) Lymph % (Auto) [place] % (Auto) Eos % (Auto) Baso % (Auto) Neut # (Auto) Lymph # (Auto) [place] # (Auto) Eos # (Auto) Baso # (Auto) Sodium Potassium Chloride Carbon Dioxide Anion Gap BUN Creatinine Est GFR ( Amer) Est GFR (Non-Af Amer) Random Glucose Calcium Total Bilirubin AST ALT Alkaline Phosphatase Total Creatine Kinase Total Protein Albumin Globulin Albumin/Globulin Ratio Urine Color Yellow Urine Clarity Clear Urine pH 6.0 Ur Specific [place] 1.012 Urine Protein 100 Urine Glucose (UA) Neg Urine Ketones Negative Urine Blood Negative Urine Nitrate Negative Urine Bilirubin Negative Urine Urobilinogen 0.2-1.0 Ur Leukocyte Esterase Neg Urine RBC (Auto) 1 Urine Microscopic WBC 1 Ur Squamous Epith Cells < 1 Urine Opiates Screen Negative Urine Methadone Screen Negative Ur Barbiturates Screen Negative Phenytoin < 3.0 L Ur Phencyclidine Scrn Negative Ur Amphetamines Screen Negative U Benzodiazepines Scrn Negative U Oth Cocaine Metabols Negative U Cannabinoids Screen Negative 09/15/17 09/15/17 04:50 04:50 WBC 10.5 RBC 4.76 Hgb 14.3 Hct 43.0 MCV 90.2 MCH 30.1 MCHC 33.4 RDW 13.6 Plt Count 197 MPV 8.7 Neut % (Auto) 75.4 H Lymph % (Auto) 13.6 L [place] % (Auto) 10.3 H Eos % (Auto) 0.2 Baso % (Auto) 0.5 Neut # (Auto) 7.9 H Lymph # (Auto) 1.4 [place] # (Auto) 1.1 H Eos # (Auto) 0.0 Baso # (Auto) 0.1 Sodium 139 Potassium 4.1 Chloride 100 Carbon Dioxide 28 Anion Gap 15 BUN 19 Creatinine 1.6 H Est GFR ( Amer) 56 Est GFR (Non-Af Amer) 46 Random Glucose 122 H Calcium 8.7 Total Bilirubin 0.8 AST 25 ALT 28 Alkaline Phosphatase 59 Total Creatine Kinase 260 H Total Protein 7.6 Albumin 4.1 Globulin 3.5 Albumin/Globulin Ratio 1.2 Urine Color Urine Clarity Urine pH Ur Specific [place] Urine Protein Urine Glucose (UA) Urine Ketones Urine Blood Urine Nitrate Urine Bilirubin Urine Urobilinogen Ur Leukocyte Esterase Urine RBC (Auto) Urine Microscopic WBC Ur Squamous Epith Cells Urine Opiates Screen Urine Methadone Screen Ur Barbiturates Screen Phenytoin Ur Phencyclidine Scrn Ur Amphetamines Screen U Benzodiazepines Scrn U Oth Cocaine Metabols U Cannabinoids Screen Fingerstick Blood Sugar Results: 135 Review of Systems - Cardiovascular Cardiovascular: absent: Chest Pain, Chest Pain at Rest, Chest Pain with Activity , Claudication, Diaphoresis - Respiratory Respiratory: absent: Cough, Dyspnea, Hemoptysis, Dyspnea on Exertion, Wheezing - Gastrointestinal Gastrointestinal: absent: Abdominal Pain, Nausea, Vomiting Critical Care Progress Note - Extremities/Vascular Does the Patient have a Central Venous Catheter?: No Does the Patient need a Central Venous Catheter?: No Does the Patient have a Abel Catheter?: No Does the Patient need a Abel Catheter?: No - Nutrition Nutrition: Nutrition Category Date Time Status Liquid Diet [DIET] Diets 09/15/17 Breakfast Active Assessment/Plan (1) Hypertensive emergency Current Visit: Yes Status: Acute Priority: High Comment: Off Cardene drip Resume home medications (2) Status epilepticus Current Visit: Yes Status: Acute Priority: High Comment: Evaluated by neurology keppra was changed to depakote 500 mg bid. EEG Maintain Seizure and aspiration precautions (3) JIMMY (acute kidney injury) Current Visit: Yes Status: Acute Priority: High Comment: IOV Hydrations Off all nephrotoxic medications /NSAIDs Renally adjust medication dose Monitor Input/Output BP and Glycemic control (4) H/O ETOH abuse Current Visit: No Status: Acute (5) Hypertensive urgency Current Visit: No Status: Acute (6) Prophylactic measure Current Visit: No Status: Acute
[2017-09-15] MEDS: Nicardipine 20 MG/200 ML 20 MG/200 ML BAG IV SCH (20:47)
[2017-09-15] MEDS ORDERED: levETIRAcetam 500 MG in Sodium Chloride 0.9% 100 ML IVPB ONE (20:52)
[2017-09-15] MEDS: Dextrose 5%/0.45% NS 1,000 ML IV SCH (21:11)
[2017-09-16] MEDS: Nicardipine 20 MG/200 ML 20 MG/200 ML BAG IV SCH ×3 (00:56→07:13)
[2017-09-16 05:22] LABS: BASO % 0.2 % (0.0-2.0); EOS # 0.1 K/uL (0.0-0.7); EOS % 0.7 % (0.0-4.0); HEMOGLOBIN 15.8 g/dL (12.0-18.0); LYMPH % 7.8 % (20.0-40.0); MEAN CELL VOLUME 89.8 fl (80.0-94.0); MEAN CORPUSCULAR HEMOGLOBIN 29.7 pg (27.0-31.0); MEAN CORPUSCULAR HGB CONC 33.1 g/dL (33.0-37.0); MEAN PLATELET VOLUME 8.7 fl (7.2-11.7); MONO # 0.9 K/uL (0.0-0.8); MONO % 7.5 % (0.0-10.0); NEUT # 10.4 K/uL (1.8-7.0); NEUT % 83.8 % (50.0-75.0); PLATELET COUNT 240 K/uL (130-400); RED CELL DISTRIBUTION WIDTH 13.4 % (11.5-14.5); WHITE BLOOD COUNT 12.4 K/uL (4.8-10.8)
[2017-09-16 05:55] LABS: ALB/GLOB RATIO 1.2 (1.0-2.1); ALBUMIN 4.8 g/dL (3.5-5.0); CALCIUM 9.4 mg/dL (8.4-10.2)
[2017-09-16] MEDS ORDERED: Valproate 1,000 MG in Sodium Chloride 0.9% 100 ML IVPB ONE (08:40)
[2017-09-16] MEDS ORDERED: levETIRAcetam 500 MG in Sodium Chloride 0.9% 100 ML IVPB SCH (09:00)
--- NOTE | 2017-09-16 09:26 | CP.PCM.PN ---
<Lady Gabriel - Last Filed: 09/16/17 09:30> Subjective - Date & Time of Evaluation Date of Evaluation: 09/16/17 Time of Evaluation: 09:21 - Subjective Subjective: Mr. Bains was seen and examined at the bedside in ICU. He is awake, but very confused, attempts to climb out of bed, unable to redirect. with numerous attempts to pull his IV line. He is unable to answer questions or follow simple commands.He remains on 1:1 sitter for patient safety. Due to patient agitation restraint was applied, needs to re-evaluate in 4 hours. He was given ativan yesterday, but remains restless and agitated. Objective - Vital Signs/Intake and Output Vital Signs (last 24 hours): Temp Pulse Resp BP Pulse Ox 98.9 F 124 H 24 161/97 H 95 09/16/17 08:00 09/16/17 08:41 09/16/17 08:00 09/16/17 08:41 09/16/17 08:00 Intake and Output: 09/16/17 09/16/17 06:59 18:59 Intake Total 1620 300 Output Total 1250 Balance 370 300 - Medications Medications: Current Medications Nicardipine HCl (Cardene Iv Premix) 20 mg in 200 mls @ 50 mls/hr IV .Q4H JESSICA; 5 MG/HR PRN Reason: Protocol Last Admin: 09/16/17 07:13 Dose: 7.5 mg/hr, 75 mls/hr Dextrose/Sodium Chloride (Dextrose 5%/0.45% Ns 1000 Ml) 1,000 mls @ 100 mls/hr IV .Q10H JESSICA Stop: 09/16/17 20:54 Last Admin: 09/15/17 21:11 Dose: 100 mls/hr Valproate Sodium 1,000 mg/ (Sodium Chloride) 110 mls @ 110 mls/hr IVPB ONCE ONE PRN Reason: As Directed Stop: 09/16/17 09:39 Valproate Sodium 500 mg/ (Sodium Chloride) 105 mls @ 105 mls/hr IVPB Q12H JESSICA PRN Reason: As Directed Lorazepam (Ativan) 2 mg IVP Q2 PRN PRN Reason: Agitation Metoprolol Tartrate (Lopressor) 25 mg PO Q12 JESSICA Last Admin: 09/16/17 08:41 Dose: 25 mg - Labs Labs: 09/16/17 04:15 09/16/17 04:15 - Constitutional Appears: No Acute Distress - Head Exam Head Exam: NORMAL INSPECTION - Neurological Exam Neurological Exam: Awake Neuro motor strength exam: Left Upper Extremity: 5, Right Upper Extremity: 5, Left Lower Extremity: 5, Right Lower Extremity: 5 Additional comments: He is very confused and agitated, unable to follow commands Assessment and Plan (1) Seizure Assessment & Plan: Case discussed with Dr. Garibay, continue all current medical regimen. Recommend to discontinue keppra due to patients behavior and start with depakote 1000 mg IV for one dose and 500 mg IV Q 12 for seizures and mood stabilizer. Recommend to start the patient on alcohol withdrawal medications to alleviate some of his agitation and restlessness. Status: Acute <Rg Garibay - Last Filed: 09/16/17 09:42> Objective - Vital Signs/Intake and Output Vital Signs (last 24 hours): Temp Pulse Resp BP Pulse Ox 98.9 F 124 H 24 161/97 H 95 09/16/17 08:00 09/16/17 08:41 09/16/17 08:00 09/16/17 08:41 09/16/17 08:00 Intake and Output: 09/16/17 09/16/17 06:59 18:59 Intake Total 1620 300 Output Total 1250 Balance 370 300 - Medications Medications: Current Medications Nicardipine HCl (Cardene Iv Premix) 20 mg in 200 mls @ 50 mls/hr IV .Q4H JESSICA; 5 MG/HR PRN Reason: Protocol Last Admin: 09/16/17 07:13 Dose: 7.5 mg/hr, 75 mls/hr Dextrose/Sodium Chloride (Dextrose 5%/0.45% Ns 1000 Ml) 1,000 mls @ 100 mls/hr IV .Q10H JESSICA Stop: 09/16/17 20:54 Last Admin: 09/15/17 21:11 Dose: 100 mls/hr Valproate Sodium 500 mg/ (Sodium Chloride) 105 mls @ 105 mls/hr IVPB Q12H JESSICA PRN Reason: As Directed Lorazepam (Ativan) 2 mg IVP Q2 PRN PRN Reason: Agitation Metoprolol Tartrate (Lopressor) 25 mg PO Q12 JESSICA Last Admin: 09/16/17 08:41 Dose: 25 mg - Labs Labs: 09/16/17 04:15 09/16/17 04:15 Assessment and Plan - Assessment and Plan (Free Text) Assessment: Recommend also to use seroquel instead of ativan for behaviour. Seroquel 25 mg po prn for agitation.
[2017-09-16] MEDS ORDERED: Nicardipine 20 MG/200 ML 20 MG/200 ML BAG IV ONE ×3 (10:38→19:54)
[2017-09-16 10:52] LABS: LYMPHOCYTE 8 % (20-50); MONOCYTE 8 % (0-10); NEUTROPHIL 84 % (42-75); PLATELET ESTIMATE NORMAL (NORMAL); TOTAL CELLS COUNTED 100
[2017-09-16] MEDS: Dextrose 5%/0.45% NS 1,000 ML IV SCH (12:25)
--- NOTE | 2017-09-16 13:45 | PQF GENQUE ---
Dr. Blevins, Please clarify the underlying cause of patient's altered mental status and relate that cause to the alteration in mental status: Cardiac condition Electrolyte/metabolic imbalance Infectious process Neurologic condition Psychiatric condition Respiratory condition Other condition (please specify) Clinically unable to determine Unknown H and P: Hx of Seizure Disorder, Hepatitis C, HYN, brought by EMS from [facility] to ER [facility] [place] to be evaluated for AMS on DOA with no improvement. Found to have AMS associated to confusion, unable to follows commands. While in the ER Pt was witnessed of having tonic movements and stiffness, unable to ambulate. 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 Patient says he drinks beer daily, quantity is not known. 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 He will need to be on antiepileptic medications but I feel that keppra should be changed to depakote 1000 mg IV now and 500 mg bid. EEG pending 09/16 Neuro note: Recommend to start the patient on alcohol withdrawal medications to alleviate some of his agitation and restlessness This form is a permanent part of the medical record Clarification of your documentation is requested to better reflect the severity of illness and intensity of treatment of your patient. Indicators present [] Specify: [] [] Specify: [] [] Specify: [] [] Specify: [] Location in the medical record that reflects the above clinical findings: [] Treatment Provided: [] PHYSICIAN'S RESPONSE Based on your medical judgment of the clinical indicators outlined above please clarify the following: [] Practitioner response [] If unable to determine, please check the box, sign and date. Present On Admission (POA) Indicator: [] Present at the time of admission [] Not present at the time of admission [] Clinically Undetermined In responding to this query, please exercise your independent professional judgment. The fact that a question is asked does not imply that any particular answer is desired or expected. Thank you for your clarification on this documentation. If you have any questions please call. * Thank you, Lyubov Razo RN ext. #[phone] MTDD
--- NOTE | 2017-09-16 16:41 | CP.PCM.PN ---
Subjective - Date & Time of Evaluation Date of Evaluation: 09/16/17 Time of Evaluation: 12:15 - Subjective Subjective: F/U AMS, High BP. Agitated , requiring Ativan IV sedation, on 1:1 Objective - Vital Signs/Intake and Output Vital Signs (last 24 hours): Temp Pulse Resp BP Pulse Ox 98.8 F 119 H 18 151/94 H 95 09/16/17 16:00 09/16/17 16:00 09/16/17 15:00 09/16/17 16:00 09/16/17 15:00 Intake and Output: 09/16/17 09/16/17 06:59 18:59 Intake Total 1620 1720 Output Total 1250 200 Balance 370 1520 - Medications Medications: Current Medications Dextrose/Sodium Chloride (Dextrose 5%/0.45% Ns 1000 Ml) 1,000 mls @ 100 mls/hr IV .Q10H JESSICA Stop: 09/16/17 20:54 Last Admin: 09/16/17 12:25 Dose: 100 mls/hr Valproate Sodium 500 mg/ (Sodium Chloride) 105 mls @ 105 mls/hr IVPB Q12H JESSICA PRN Reason: As Directed Lorazepam (Ativan) 2 mg IVP Q2 PRN PRN Reason: Agitation Last Admin: 09/16/17 16:00 Dose: 2 mg Metoprolol Tartrate (Lopressor) 25 mg PO Q12 JESSICA Last Admin: 09/16/17 08:41 Dose: 25 mg - Labs Labs: 09/16/17 04:15 09/16/17 04:15 - Constitutional Appears: No Acute Distress - Head Exam Head Exam: NORMAL INSPECTION - Eye Exam Eye Exam: PERRL - ENT Exam ENT Exam: Normal Exam - Neck Exam Neck Exam: Normal Inspection - Respiratory Exam Respiratory Exam: NORMAL BREATHING PATTERN - Cardiovascular Exam Cardiovascular Exam: REGULAR RHYTHM - GI/Abdominal Exam GI & Abdominal Exam: Soft, Normal Bowel Sounds - Extremities Exam Extremities Exam: Normal Inspection - Back Exam Back Exam: NORMAL INSPECTION - Neurological Exam Neurological Exam: Awake Additional comments: Confused, disoriented, not answering questions, not following commands. - Psychiatric Exam Additional comments: Calm - Skin Skin Exam: Warm Assessment and Plan (1) Status epilepticus Status: Acute (2) Altered mental status Status: Acute (3) Hypertensive emergency Status: Acute (4) Alcohol withdrawal Status: Acute - Assessment and Plan (Free Text) Plan: continue Ativan IV, BP control , Depakote for seizure control , 1:1 ICU Time: 40 min.
[2017-09-16] MEDS: Valproate 500 MG in Sodium Chloride 0.9% 100 ML IVPB SCH (17:11)
--- NOTE | 2017-09-16 18:36 | CP.CCUPN ---
CCU Subjective - Physician Review Subjective (Free Text): Extreme agitation today, uncontrollable with verbal re-direction, and Ativan interim dosing, required 3 point leather restraints of both arms and RLE before more Ativan could be administered to prevent patient from injuring himself and others. He has already pulled several peripheral IVs, and self-removed Abel. Ativan increased to 2 mg Q2H prn for now. Cardene drip ongoing for BP control. Yet, resp status is stable and does not need airway protection nor assisted breathing support. ROS: No other pertinent negs or positives on 10+ system review unobtainable in -between sedation and agitation. PMSFH: All other Nursing and physician documentation reviewed to date; no new pertinent info noted relevant to current medical problems. IMPRESSION / MAJOR PROBLEMS NOW: 1. Delirium vs. Acute ETOH Withdrawal 2. Accelerated Hypertension 3. IJMMY / Dehydration 4. Seizure Disorder PLAN: 1. Will cautiously use BZDPs for severe agitation prn only. 2. If Delirium worsens despite BZDP use, will trial Quetiapine. 3. Try to mobilize, get OOB to chair at least in attempt to lessen episodes of Delirium. 4. If continuous sedation needed and does not obviously need airway protection , will trial Dexmedetomidine. 5. AED changed to Valproate to avoid possible psychotic side effects of Keppra. CCU Objective - Vital Signs / Intake & Output Vital Signs (Last 4 hours): Vital Signs Temp Pulse Resp BP Pulse Ox 09/16/17 18:00 114 H 18 165/83 H 09/16/17 17:00 129 H 26 H 131/105 H 09/16/17 16:00 98.8 F 119 H 151/94 H 09/16/17 15:00 119 H 18 146/92 H 95 Intake and Output (Last 8hrs): Intake & Output 09/16/17 09/16/17 09/16/17 06:59 14:59 22:59 Intake Total 1620 1280 1100 Output Total 1250 300 Balance 370 1280 800 Weight 142 lb Intake: IV 1500 700 400 Intake, Piggyback 100 100 Oral 120 480 600 Output: Urine 1250 300 Urethral (Abel) 1250 Urine, Voided 300 Other: # Voids Urethral (Abel) 5 - Physical Exam Head: Positive for: Atraumatic, Normocephalic Pupils: Positive for: PERRL Extroacular Muscles: Positive for: EOMI Conjunctiva: Positive for: Normal. Negative for: Icteric Ears: Positive for: Normal Mouth: Positive for: Moist Mucous Membranes Nose (External): Positive for: Atraumatic Nose (Internal): Positive for: Normal Inspection Neck: Positive for: Normal Range of Motion, Trachea Midline. Negative for: Meningeal Signs, MIDLINE TENDERNESS, Paraspinal Tenderness, JVD, Lymphadenopathy , Bruit, Other Respiratory/Chest: Positive for: Clear to Auscultation, Good Air Exchange. Negative for: Respiratory Distress, Accessory Muscle Use, Wheezes, Rales, Rhonchi Cardiovascular: Positive for: Regular Rate and Rhythm, Normal S1, S2, Tachycardic. Negative for: Murmurs, Bradycardic Abdomen: Positive for: Normal Bowel Sounds. Negative for: Tenderness, Distention Lower Extremity: Positive for: NORMAL PULSES. Negative for: Edema, CALF TENDERNESS, Cyanosis Neurological: Positive for: Motor Func Grossly Intact, Normal Sensory Function Skin: Positive for: Warm, Dry. Negative for: Rashes Psychiatric: Positive for: Lethargic (post-sedation) - Medications Active Medications: Active Medications Generic Name Dose Route Start Last Admin Trade Name Freq PRN Reason Stop Dose Admin Dextrose/Sodium Chloride 1,000 mls @ 100 mls/hr 09/15/17 21:00 09/16/17 12:25 Dextrose 5%/0.45% Ns 1000 Ml IV 09/16/17 20:54 100 mls/hr .Q10H JESSICA Administration Valproate Sodium 500 mg/ 105 mls @ 105 mls/hr 09/16/17 18:00 09/16/17 17:11 Sodium Chloride IVPB 105 mls/hr Q12H JESSICA Administration As Directed Nicardipine HCl 20 mg in 200 mls @ 50 mls/hr 09/16/17 16:58 09/16/17 17:14 Cardene Iv Premix IV 09/16/17 20:57 5 mg/hr .Q4H ONE 50 mls/hr Protocol Administration 5 MG/HR Lorazepam 2 mg 09/16/17 08:31 09/16/17 16:00 Ativan IVP 2 mg Q2 PRN Administration Agitation Metoprolol Tartrate 25 mg 09/15/17 21:00 09/16/17 08:41 Lopressor PO 25 mg Q12 JESSICA Administration - Patient Studies Lab Studies: Lab Studies 09/16/17 09/16/17 Range/Units 04:15 04:15 WBC 12.4 H (4.8-10.8) K/uL RBC 5.30 (4.40-5.90) Mil/uL Hgb 15.8 (12.0-18.0) g/dL Hct 47.6 (35.0-51.0) % MCV 89.8 (80.0-94.0) fl MCH 29.7 (27.0-31.0) pg MCHC 33.1 (33.0-37.0) g/dL RDW 13.4 (11.5-14.5) % Plt Count 240 (130-400) K/uL MPV 8.7 (7.2-11.7) fl Neut % (Auto) 83.8 H (50.0-75.0) % Lymph % (Auto) 7.8 L (20.0-40.0) % [place] % (Auto) 7.5 (0.0-10.0) % Eos % (Auto) 0.7 (0.0-4.0) % Baso % (Auto) 0.2 (0.0-2.0) % Neut # (Auto) 10.4 H (1.8-7.0) K/uL Lymph # (Auto) 1.0 (1.0-4.3) K/uL [place] # (Auto) 0.9 H (0.0-0.8) K/uL Eos # (Auto) 0.1 (0.0-0.7) K/uL Baso # (Auto) 0.0 (0.0-0.2) K/uL Neutrophils % (Manual) 84 H (42-75) % Lymphocytes % (Manual) 8 L (20-50) % Monocytes % (Manual) 8 (0-10) % Platelet Estimate Normal (NORMAL) RBC Morphology Normal (NORMAL) Sodium 140 (132-148) mmol/l Potassium 4.0 (3.6-5.0) MMOL/L Chloride 97 L (98-107) mmol/L Carbon Dioxide 27 (22-30) mmol/L Anion Gap 20 (10-20) BUN 15 (9-20) mg/dl Creatinine 1.5 (0.8-1.5) mg/dl Est GFR ( Amer) 60 Est GFR (Non-Af Amer) 50 Random Glucose 139 H (75-110) mg/dL Calcium 9.4 (8.4-10.2) mg/dL Total Bilirubin 1.0 (0.2-1.3) mg/dl AST 27 (17-59) U/L ALT 29 (21-72) U/L Alkaline Phosphatase 74 (38-126) U/L Total Protein 8.8 H (6.3-8.2) G/DL Albumin 4.8 (3.5-5.0) g/dL Globulin 4.1 H (2.2-3.9) gm/dL Albumin/Globulin Ratio 1.2 (1.0-2.1) Laboratory Results - last 24 hr 09/16/17 09/16/17 04:15 04:15 WBC 12.4 H RBC 5.30 Hgb 15.8 Hct 47.6 MCV 89.8 MCH 29.7 MCHC 33.1 RDW 13.4 Plt Count 240 MPV 8.7 Neut % (Auto) 83.8 H Lymph % (Auto) 7.8 L [place] % (Auto) 7.5 Eos % (Auto) 0.7 Baso % (Auto) 0.2 Neut # (Auto) 10.4 H Lymph # (Auto) 1.0 [place] # (Auto) 0.9 H Eos # (Auto) 0.1 Baso # (Auto) 0.0 Neutrophils % (Manual) 84 H Lymphocytes % (Manual) 8 L Monocytes % (Manual) 8 Platelet Estimate Normal RBC Morphology Normal Sodium 140 Potassium 4.0 Chloride 97 L Carbon Dioxide 27 Anion Gap 20 BUN 15 Creatinine 1.5 Est GFR ( Amer) 60 Est GFR (Non-Af Amer) 50 Random Glucose 139 H Calcium 9.4 Total Bilirubin 1.0 AST 27 ALT 29 Alkaline Phosphatase 74 Total Protein 8.8 H Albumin 4.8 Globulin 4.1 H Albumin/Globulin Ratio 1.2 Fingerstick Blood Sugar Results: 135 Review of Systems - Review of Systems Systems not reviewed;Unavailable: Altered Mental Status Critical Care Progress Note - Nutrition Nutrition: Nutrition Category Date Time Status Liquid Diet [DIET] Diets 09/15/17 Breakfast Active
[2017-09-17] MEDS ORDERED: Nicardipine 20 MG/200 ML 20 MG/200 ML BAG IV ONE ×2 (02:43→07:29)
[2017-09-17 05:56] LABS: HEMOGLOBIN 14.4 g/dL (12.0-18.0); MEAN CELL VOLUME 87.8 fl (80.0-94.0); MEAN CORPUSCULAR HEMOGLOBIN 29.8 pg (27.0-31.0); MEAN CORPUSCULAR HGB CONC 33.9 g/dL (33.0-37.0); RBC 4.86 Mil/uL (4.40-5.90); RED CELL DISTRIBUTION WIDTH 13.3 % (11.5-14.5); WHITE BLOOD COUNT 11.8 K/uL (4.8-10.8)
[2017-09-17] MEDS: Valproate 500 MG in Sodium Chloride 0.9% 100 ML IVPB SCH ×2 (06:14→17:03)
[2017-09-17 07:15] LABS: BLOOD UREA NITROGEN 12 mg/dl (9-20); GFR AFRICAN-AMERICAN > 60; GFR NON-AFRICAN AMERICAN 54
--- NOTE | 2017-09-17 09:53 | CP.PCM.PN ---
Subjective - Date & Time of Evaluation Date of Evaluation: 09/17/17 Time of Evaluation: 09:50 - Subjective Subjective: Mr. Bains was seen and examined at the bedside in ICU. He is alert, oriented to person ( [place]) and time (2017), but not place, he thinks he is in a hotel. He still has episodes of confusion.He denies any headache, blurred vision, nausea, or vomiting. He is able to move all extremities spontaneously and occassional restlessness. He remains on bilateral wrist restraint and 1:1 sitter for patient safety. He also remains on cardene drip to control his blood pressure. Objective - Vital Signs/Intake and Output Vital Signs (last 24 hours): Temp Pulse Resp BP Pulse Ox 98.5 F 103 H 21 170/44 H 93 L 09/17/17 08:00 09/17/17 09:00 09/17/17 09:00 09/17/17 09:00 09/17/17 09:00 Intake and Output: 09/17/17 09/17/17 06:59 18:59 Intake Total 1650 100 Balance 1650 100 - Medications Medications: Current Medications Valproate Sodium 500 mg/ (Sodium Chloride) 105 mls @ 105 mls/hr IVPB Q12H JESSICA PRN Reason: As Directed Last Admin: 09/17/17 06:14 Dose: 105 mls/hr Nicardipine HCl (Cardene Iv Premix) 20 mg in 200 mls @ 50 mls/hr IV .Q4H ONE; 5 MG/HR PRN Reason: Protocol Stop: 09/17/17 11:28 Last Admin: 09/17/17 08:29 Dose: 5 mg/hr, 50 mls/hr Lorazepam (Ativan) 2 mg IVP Q2 PRN PRN Reason: Agitation Last Admin: 09/17/17 06:18 Dose: 2 mg Metoprolol Tartrate (Lopressor) 25 mg PO Q12 JESSICA Last Admin: 09/17/17 08:32 Dose: 25 mg - Labs Labs: 09/17/17 04:45 09/17/17 04:45 - Constitutional Appears: No Acute Distress - Head Exam Head Exam: NORMAL INSPECTION - Neurological Exam Neurological Exam: Alert, Awake Neuro motor strength exam: Left Upper Extremity: 5, Right Upper Extremity: 5, Left Lower Extremity: 5, Right Lower Extremity: 5 Additional comments: Neurological improved from previous examination. He is able to answer questions and follow simple commands. Sensation is intact. Assessment and Plan (1) Seizure Assessment & Plan: Case discussed with Dr. Garibay, continue all current medical regimen. Pending EEG and recommend to monitor depakote level ( it is schedule kaveh. am). Status: Acute
[2017-09-17] MEDS: Dextrose 5%/0.45% NS 1,000 ML IV SCH ×4 (10:58→21:20)
--- NOTE | 2017-09-17 12:04 | CP.CCUPN ---
CCU Subjective - Physician Review Subjective (Free Text): Much more coherent and cooperative today, only required IV sedation with Ativan at 6AM today, discussed with Nursing to get patient OOB and tolerated well, sitting upright in chair with soft wrist restraints, but no overtly agitated, nor any signs of diaphoresis, nor excessive tachycardia. IV Cardene just turned off and BP levels remain in 130's systolic. He is asking for more food and intermittently states he wants to go home. He still requires 1:1 observation and supervision. ROS: No other pertinent negs or positives on 10+ system review. PMSFH: All other Nursing and physician documentation reviewed to date; no new pertinent info noted relevant to current medical problems. IMPRESSION / MAJOR PROBLEMS NOW: 1. Delirium vs. Acute ETOH Withdrawal 2. Accelerated Hypertension 3. JIMMY / Dehydration 4. Seizure Disorder PLAN: 1. Will cautiously use BZDPs for severe agitation prn only. 2. If Delirium worsens despite BZDP use, will trial Quetiapine. 3. Mobilized OOB to chair at least in attempt to lessen episodes of Delirium. 4. If continuous sedation needed and does not obviously need airway protection , will trial Dexmedetomidine. 5. AED changed to Valproate to avoid possible psychotic side effects of Keppra. 6. Increase Metoprolol to 50mg Q12H. CCU Objective - Vital Signs / Intake & Output Vital Signs (Last 4 hours): Vital Signs Temp Pulse Resp BP Pulse Ox 09/17/17 11:00 81 32 H 135/66 99 09/17/17 10:30 83 20 137/89 98 09/17/17 10:00 85 22 171/80 H 99 09/17/17 09:00 103 H 21 170/44 H 93 L 09/17/17 08:32 90 163/91 H 09/17/17 08:00 98.5 F 91 H 19 159/67 H 100 Intake and Output (Last 8hrs): Intake & Output 09/16/17 09/17/17 09/17/17 22:59 06:59 14:59 Intake Total 1750 1000 540 Output Total 300 Balance 1450 1000 540 Intake: IV 950 1000 300 Intake, Piggyback 100 Oral 700 240 Output: Urine 300 Urine, Voided 300 - Physical Exam Head: Positive for: Atraumatic, Normocephalic Pupils: Positive for: PERRL Extroacular Muscles: Positive for: EOMI Conjunctiva: Positive for: Normal. Negative for: Icteric Ears: Positive for: Normal Mouth: Positive for: Moist Mucous Membranes Nose (External): Positive for: Atraumatic Nose (Internal): Positive for: Normal Inspection Neck: Positive for: Normal Range of Motion, Trachea Midline. Negative for: Meningeal Signs, MIDLINE TENDERNESS, Paraspinal Tenderness, JVD, Lymphadenopathy , Bruit, Other Respiratory/Chest: Positive for: Clear to Auscultation, Good Air Exchange. Negative for: Respiratory Distress, Accessory Muscle Use, Wheezes, Rales, Rhonchi Cardiovascular: Positive for: Regular Rate and Rhythm, Normal S1, S2, Tachycardic. Negative for: Murmurs, Bradycardic Abdomen: Positive for: Normal Bowel Sounds. Negative for: Tenderness, Distention Lower Extremity: Positive for: NORMAL PULSES. Negative for: Edema, CALF TENDERNESS, Cyanosis Neurological: Positive for: Motor Func Grossly Intact, Normal Sensory Function Skin: Positive for: Warm, Dry. Negative for: Rashes Psychiatric: Positive for: Lethargic (post-sedation) - Medications Active Medications: Active Medications Generic Name Dose Route Start Last Admin Trade Name Freq PRN Reason Stop Dose Admin Valproate Sodium 500 mg/ 105 mls @ 105 mls/hr 09/16/17 18:00 09/17/17 06:14 Sodium Chloride IVPB 105 mls/hr Q12H JESSICA Administration As Directed Dextrose/Sodium Chloride 1,000 mls @ 100 mls/hr 09/17/17 10:45 09/17/17 10:58 Dextrose 5%/0.45% Ns 1000 Ml IV 09/18/17 10:38 100 mls/hr .Q10H JESSICA Administration Lorazepam 2 mg 09/16/17 08:31 09/17/17 06:18 Ativan IVP 2 mg Q2 PRN Administration Agitation Metoprolol Tartrate 25 mg 09/15/17 21:00 09/17/17 08:32 Lopressor PO 25 mg Q12 JESSICA Administration - Patient Studies Lab Studies: Microbiology Studies 09/14/17 06:59 MRSA Culture (Admit) - Final Naris MRSA NOT DETECTED Lab Studies 09/17/17 09/17/17 Range/Units 04:45 04:45 WBC 11.8 H (4.8-10.8) K/uL RBC 4.86 (4.40-5.90) Mil/uL Hgb 14.4 (12.0-18.0) g/dL Hct 42.6 (35.0-51.0) % MCV 87.8 D (80.0-94.0) fl MCH 29.8 (27.0-31.0) pg MCHC 33.9 (33.0-37.0) g/dL RDW 13.3 (11.5-14.5) % Plt Count 220 (130-400) K/uL Sodium 135 (132-148) mmol/l Potassium 3.5 L (3.6-5.0) MMOL/L Chloride 95 L (98-107) mmol/L Carbon Dioxide 27 (22-30) mmol/L Anion Gap 17 (10-20) BUN 12 (9-20) mg/dl Creatinine 1.4 (0.8-1.5) mg/dl Est GFR ( Amer) > 60 Est GFR (Non-Af Amer) 54 Random Glucose 102 (75-110) mg/dL Calcium 9.0 (8.4-10.2) mg/dL Laboratory Results - last 24 hr 09/17/17 09/17/17 04:45 04:45 WBC 11.8 H RBC 4.86 Hgb 14.4 Hct 42.6 MCV 87.8 D MCH 29.8 MCHC 33.9 RDW 13.3 Plt Count 220 Sodium 135 Potassium 3.5 L Chloride 95 L Carbon Dioxide 27 Anion Gap 17 BUN 12 Creatinine 1.4 Est GFR ( Amer) > 60 Est GFR (Non-Af Amer) 54 Random Glucose 102 Calcium 9.0 Fingerstick Blood Sugar Results: 135 Review of Systems - Review of Systems All systems: reviewed and no additional remarkable complaints except (as above) Critical Care Progress Note - Nutrition Nutrition: Nutrition Category Date Time Status Liquid Diet [DIET] Diets 09/15/17 Breakfast Active
--- NOTE | 2017-09-17 15:33 | CP.PCM.PN ---
Subjective - Date & Time of Evaluation Date of Evaluation: 09/17/17 Time of Evaluation: 11:00 - Subjective Subjective: S/P AMS, high BP. agitated , confused , on 1:1 Objective - Vital Signs/Intake and Output Vital Signs (last 24 hours): Temp Pulse Resp BP Pulse Ox 98.5 F 64 22 144/96 H 97 09/17/17 12:00 09/17/17 15:00 09/17/17 15:00 09/17/17 15:00 09/17/17 14:00 Intake and Output: 09/17/17 09/17/17 06:59 18:59 Intake Total 1650 1660 Output Total 400 Balance 1650 1260 - Medications Medications: Current Medications Valproate Sodium 500 mg/ (Sodium Chloride) 105 mls @ 105 mls/hr IVPB Q12H JESSICA PRN Reason: As Directed Last Admin: 09/17/17 06:14 Dose: 105 mls/hr Dextrose/Sodium Chloride (Dextrose 5%/0.45% Ns 1000 Ml) 1,000 mls @ 100 mls/hr IV .Q10H [facility] Stop: 09/18/17 10:38 Last Admin: 09/17/17 10:58 Dose: 100 mls/hr Lorazepam (Ativan) 2 mg IVP Q2 PRN PRN Reason: Agitation Last Admin: 09/17/17 06:18 Dose: 2 mg Metoprolol Tartrate (Lopressor) 25 mg PO Q12 JESSICA Last Admin: 09/17/17 08:32 Dose: 25 mg - Labs Labs: 09/17/17 04:45 09/17/17 04:45 - Constitutional Appears: No Acute Distress - Head Exam Head Exam: NORMAL INSPECTION - Eye Exam Eye Exam: PERRL - ENT Exam ENT Exam: Normal Exam - Neck Exam Neck Exam: Normal Inspection - Respiratory Exam Respiratory Exam: Clear to Ausculation Bilateral - Cardiovascular Exam Cardiovascular Exam: REGULAR RHYTHM - GI/Abdominal Exam GI & Abdominal Exam: Soft, Normal Bowel Sounds - Extremities Exam Extremities Exam: Normal Inspection - Back Exam Back Exam: NORMAL INSPECTION - Neurological Exam Neurological Exam: Alert Additional comments: Confused, disoriented, able to answer questions, follows commands, no focal motor/sensory deficit - Psychiatric Exam Psychiatric exam: Agitated - Skin Skin Exam: Warm Assessment and Plan (1) Status epilepticus Status: Acute (2) Altered mental status Status: Acute (3) Hypertensive emergency Status: Acute (4) Alcohol withdrawal Status: Acute - Assessment and Plan (Free Text) Plan: Jose white DC , BP stable on Lopressor , Depakote treatment fot Seizures . Ativan for Alcohol withdraw, plans to begin Librium ICU Time: 38 min.
[2017-09-18] MEDS: Valproate 500 MG in Sodium Chloride 0.9% 100 ML IVPB SCH ×2 (05:15→17:02)
[2017-09-18 05:17] LABS: HEMOGLOBIN 14.4 g/dL (12.0-18.0); MEAN CELL VOLUME 88.4 fl (80.0-94.0); MEAN CORPUSCULAR HGB CONC 33.9 g/dL (33.0-37.0); RBC 4.81 Mil/uL (4.40-5.90); RED CELL DISTRIBUTION WIDTH 13.4 % (11.5-14.5); WHITE BLOOD COUNT 6.6 K/uL (4.8-10.8)
[2017-09-18 06:03] LABS: BLOOD UREA NITROGEN 15 mg/dl (9-20); CALCIUM 8.7 mg/dL (8.4-10.2); GFR AFRICAN-AMERICAN > 60; GFR NON-AFRICAN AMERICAN 54
--- NOTE | 2017-09-18 09:40 | EEG ---
ELECTROENCEPHALOGRAM REPORT DATE: 09/15/2017 TECHNICAL INFORMATION: Electrodes were placed according to the 10-20 International electrode system by cath lab technologist. Total of 23 electrodes (21 EEG and 2 EKG) were placed. EEG activity was digitally recorded referentially to P1/P2 or A1/A2 electrodes. Continuous monitoring with EEG was performed using digital analysis for spike detection. The [employer] spike and seizure detection algorithms were used for digital EEG analysis throughout the monitoring period to screen the EEG in real-time and ria the data file with pointers to electrographic seizures and interictal discharges. EEG was screened for electrographic seizures and interictal discharges by a technologist. Physician, epileptologist reviewed detections as well as extensive random samples and whole EEG study in detail. Digital EEG Analysis: Was carried out including FFT (Fast Fourier Transform), R2D2 (Rhythmicity Run Detection and Display), Relative Asymmetry Spectrogram, and voltage plot by the [employer] Software. The qualitative EEG analysis and the voltage plot mapping were used for detection of foci of paroxysmal and abnormal electrical cortical activity. GENERAL DESCRIPTION: Background Rhythm: There is a well-formed, 8-10 Hz posterior dominant rhythm that is reactive, symmetric, and attenuates with eye opening. There was a normal amount of frontal beta noted bilaterally. There is no sleep recorded. ACTIVATION PROCEDURES: Photic stimulation: There is no driving noted. Hyperventilation: There is slowing noted that is self-remitted. ABNORMAL ACTIVITY: There are no focal epileptiform discharges noted. No clinical or subclinical seizures noted. IMPRESSION: This is a normal awake and drowsy electroencephalogram. There is increased beta due to medication effect and clinical correlation is required. Rg Garibay MD
--- NOTE | 2017-09-18 09:51 | CP.PCM.PN ---
Subjective - Date & Time of Evaluation Date of Evaluation: 09/18/17 Time of Evaluation: 09:51 - Subjective Subjective: Mr. Bains was seen and examined at the bedside in the ICU. He is alert, oriented x 3. He is able to answer questions appropriately. He denies any headache, dizziness, lightheadedness, nausea, or vomiting. He is able to follow simple commands. He keeps on asking his belongings numerous times. He remains with bilateral wrist restraints and 1:1 sitter for patient safety. There was no untoward events overnight. Objective - Vital Signs/Intake and Output Vital Signs (last 24 hours): Temp Pulse Resp BP Pulse Ox 97.4 F L 60 14 158/116 H 84 L 09/18/17 08:00 09/18/17 08:00 09/18/17 08:00 09/18/17 08:00 09/18/17 08:00 Intake and Output: 09/18/17 09/18/17 06:59 18:59 Intake Total 1200 Output Total 1350 Balance -150 - Medications Medications: Current Medications Chlordiazepoxide (Librium) 25 mg PO Q8 JESSICA Valproate Sodium 500 mg/ (Sodium Chloride) 105 mls @ 105 mls/hr IVPB Q12H JESSICA PRN Reason: As Directed Last Admin: 09/18/17 05:15 Dose: 105 mls/hr Dextrose/Sodium Chloride (Dextrose 5%/0.45% Ns 1000 Ml) 1,000 mls @ 100 mls/hr IV .Q10H JESSICA Stop: 09/18/17 10:38 Last Admin: 09/17/17 21:20 Dose: 100 mls/hr Lorazepam (Ativan) 2 mg IVP Q2 PRN PRN Reason: Agitation Last Admin: 09/18/17 02:48 Dose: 2 mg Metoprolol Tartrate (Lopressor) 25 mg PO Q12 JESSICA Last Admin: 09/17/17 21:13 Dose: 25 mg - Labs Labs: 09/18/17 04:30 09/18/17 04:30 - Constitutional Appears: No Acute Distress - Head Exam Head Exam: NORMAL INSPECTION - Neurological Exam Neurological Exam: Alert, Awake, Oriented x3 Neuro motor strength exam: Left Upper Extremity: 5, Right Upper Extremity: 5, Left Lower Extremity: 5, Right Lower Extremity: 5 Additional comments: Neurological improved from previous examination. He is alert, oriented x3. He is able to answer questions appropriately. Assessment and Plan (1) Seizure Assessment & Plan: Case discussed with Dr. Garibay, continue all current medical regimen. Recommend ETOH withdrawal program. Status: Acute
[2017-09-18] MEDS: Dextrose 5%/0.45% NS 1,000 ML IV SCH (10:00)
--- NOTE | 2017-09-18 11:52 | CP.CCUPN ---
CCU Subjective - Physician Review Subjective (Free Text): Sleeping now, he did require only one dose of Ativan overnight. He still requires 1:1 observation and supervision. Other vitals and I/O's reviewed. ROS: No other pertinent negs or positives on 10+ system review. PMSFH: All other Nursing and physician documentation reviewed to date; no new pertinent info noted relevant to current medical problems. IMPRESSION / MAJOR PROBLEMS NOW: 1. Delirium vs. Acute ETOH Withdrawal 2. Accelerated Hypertension 3. JIMMY / Dehydration 4. Seizure Disorder PLAN: 1. Will cautiously use BZDPs for severe agitation prn only. Dose to be reduced to Ativan 1 mg Q2h prn. 2. If Delirium worsens despite BZDP use, will trial Quetiapine. 3. Mobilized OOB to chair at least in attempt to lessen episodes of Delirium. 4. AED changed to Valproate to avoid possible psychotic side effects of Keppra. 5. May have to decrease Metoprolol for periods of baradycardia noted in the 50 's during sleep. 6. Stable for transfer to regular bed. CCU Objective - Vital Signs / Intake & Output Vital Signs (Last 4 hours): Vital Signs Temp Pulse Resp BP Pulse Ox 09/18/17 10:02 47 L 138/27 L 09/18/17 08:00 97.4 F L 60 14 158/116 H 84 L Intake and Output (Last 8hrs): Intake & Output 09/17/17 09/18/17 09/18/17 22:59 06:59 14:59 Intake Total 850 800 120 Output Total 1150 300 Balance -300 500 120 Weight 142 lb Intake: IV 600 800 Oral 250 120 Output: Urine 1150 300 Urine, Voided 1150 300 Other: # Voids Urine, Voided 1 # Bowel Movements 1 - Physical Exam Head: Positive for: Atraumatic, Normocephalic Pupils: Positive for: PERRL Extroacular Muscles: Positive for: EOMI Conjunctiva: Positive for: Normal. Negative for: Icteric Ears: Positive for: Normal Mouth: Positive for: Moist Mucous Membranes Nose (External): Positive for: Atraumatic Nose (Internal): Positive for: Normal Inspection Neck: Positive for: Normal Range of Motion, Trachea Midline. Negative for: Meningeal Signs, MIDLINE TENDERNESS, Paraspinal Tenderness, JVD, Lymphadenopathy , Bruit, Other Respiratory/Chest: Positive for: Clear to Auscultation, Good Air Exchange. Negative for: Respiratory Distress, Accessory Muscle Use, Wheezes, Rales, Rhonchi Cardiovascular: Positive for: Regular Rate and Rhythm, Normal S1, S2, Tachycardic. Negative for: Murmurs, Bradycardic Abdomen: Positive for: Normal Bowel Sounds. Negative for: Tenderness, Distention Lower Extremity: Positive for: NORMAL PULSES. Negative for: Edema, CALF TENDERNESS, Cyanosis Neurological: Positive for: Motor Func Grossly Intact, Normal Sensory Function Skin: Positive for: Warm, Dry. Negative for: Rashes Psychiatric: Positive for: Lethargic (post-sedation) - Medications Active Medications: Active Medications Generic Name Dose Route Start Last Admin Trade Name Freq PRN Reason Stop Dose Admin Chlordiazepoxide 25 mg 09/18/17 09:00 09/18/17 10:01 Librium PO 25 mg Q8 JESSICA Administration Valproate Sodium 500 mg/ 105 mls @ 105 mls/hr 09/16/17 18:00 09/18/17 05:15 Sodium Chloride IVPB 105 mls/hr Q12H JESSICA Administration As Directed Lorazepam 2 mg 09/16/17 08:31 09/18/17 02:48 Ativan IVP 2 mg Q2 PRN Administration Agitation Metoprolol Tartrate 25 mg 09/15/17 21:00 09/18/17 10:02 Lopressor PO Not Given Q12 JESSICA - Patient Studies Lab Studies: Lab Studies 09/18/17 09/18/17 09/18/17 Range/Units 04:30 04:30 04:30 WBC 6.6 (4.8-10.8) K/uL RBC 4.81 (4.40-5.90) Mil/uL Hgb 14.4 (12.0-18.0) g/dL Hct 42.5 (35.0-51.0) % MCV 88.4 (80.0-94.0) fl MCH 30.0 (27.0-31.0) pg MCHC 33.9 (33.0-37.0) g/dL RDW 13.4 (11.5-14.5) % Plt Count 201 (130-400) K/uL Sodium 137 (132-148) mmol/l Potassium 3.6 (3.6-5.0) MMOL/L Chloride 99 (98-107) mmol/L Carbon Dioxide 25 (22-30) mmol/L Anion Gap 17 (10-20) BUN 15 (9-20) mg/dl Creatinine 1.4 (0.8-1.5) mg/dl Est GFR ( Amer) > 60 Est GFR (Non-Af Amer) 54 Random Glucose 100 (75-110) mg/dL Calcium 8.7 (8.4-10.2) mg/dL Valproic Acid 68.1 (50.0-100.0) ug/mL Laboratory Results - last 24 hr 09/18/17 09/18/17 09/18/17 04:30 04:30 04:30 WBC 6.6 RBC 4.81 Hgb 14.4 Hct 42.5 MCV 88.4 MCH 30.0 MCHC 33.9 RDW 13.4 Plt Count 201 Sodium 137 Potassium 3.6 Chloride 99 Carbon Dioxide 25 Anion Gap 17 BUN 15 Creatinine 1.4 Est GFR ( Amer) > 60 Est GFR (Non-Af Amer) 54 Random Glucose 100 Calcium 8.7 Valproic Acid 68.1 Fingerstick Blood Sugar Results: 135 Review of Systems - Review of Systems All systems: reviewed and no additional remarkable complaints except (as above) Critical Care Progress Note - Nutrition Nutrition: Nutrition Category Date Time Status Liquid Diet [DIET] Diets 09/15/17 Breakfast Active
--- NOTE | 2017-09-18 15:52 | CP.PCM.PN ---
Subjective - Date & Time of Evaluation Date of Evaluation: 09/18/17 Time of Evaluation: 13:00 - Subjective Subjective: F/U HTN, AMS Pt awake, calm, asking questions likely what's happened to him, feels better. Objective - Vital Signs/Intake and Output Vital Signs (last 24 hours): Temp Pulse Resp BP Pulse Ox 97.4 F L 47 L 14 138/27 L 84 L 09/18/17 08:00 09/18/17 10:02 09/18/17 08:00 09/18/17 10:02 09/18/17 08:00 Intake and Output: 09/18/17 09/18/17 06:59 18:59 Intake Total 1200 240 Output Total 1350 400 Balance -150 -160 - Medications Medications: Current Medications Chlordiazepoxide (Librium) 25 mg PO Q8 [facility] Last Admin: 09/18/17 10:01 Dose: 25 mg Valproate Sodium 500 mg/ (Sodium Chloride) 105 mls @ 105 mls/hr IVPB Q12H JESSICA PRN Reason: As Directed Last Admin: 09/18/17 05:15 Dose: 105 mls/hr Lorazepam (Ativan) 2 mg IVP Q2 PRN PRN Reason: Agitation Last Admin: 09/18/17 02:48 Dose: 2 mg Metoprolol Tartrate (Lopressor) 25 mg PO Q12 [facility] Last Admin: 09/18/17 10:02 Dose: Not Given - Labs Labs: 09/18/17 04:30 09/18/17 04:30 - Constitutional Appears: No Acute Distress - Head Exam Head Exam: NORMAL INSPECTION - Eye Exam Eye Exam: PERRL - ENT Exam ENT Exam: Normal Exam - Neck Exam Neck Exam: Normal Inspection - Respiratory Exam Respiratory Exam: NORMAL BREATHING PATTERN - Cardiovascular Exam Cardiovascular Exam: REGULAR RHYTHM - GI/Abdominal Exam GI & Abdominal Exam: Soft, Normal Bowel Sounds - Extremities Exam Extremities Exam: Normal Inspection - Back Exam Back Exam: NORMAL INSPECTION - Neurological Exam Neurological Exam: Alert Additional comments: Confused, disoriented, able to answer questions, follows commands. - Skin Skin Exam: Warm Assessment and Plan (1) Status epilepticus Status: Acute (2) Altered mental status Status: Acute (3) Hypertensive emergency Status: Acute (4) Alcohol withdrawal Status: Acute - Assessment and Plan (Free Text) Plan: 1:1 was DC, Continue Norvasc and rest of Tx.
[2017-09-18] MEDS ORDERED: Nitroglycerin 2% Ointment Foilpak UD TOP SCH (19:00)
[2017-09-18] MEDS: Nitroglycerin 2% Ointment Foilpak UD TOP SCH (19:22)
[2017-09-19] MEDS: Nitroglycerin 2% Ointment Foilpak UD TOP SCH ×4 (01:40→18:27)
[2017-09-19] MEDS: Valproate 500 MG in Sodium Chloride 0.9% 100 ML IVPB SCH ×2 (08:44→18:27)
--- NOTE | 2017-09-19 16:13 | CP.PCM.PN ---
Subjective - Date & Time of Evaluation Date of Evaluation: 09/19/17 Time of Evaluation: 14:40 - Subjective Subjective: F/U HTN, AMS. more alert Objective - Vital Signs/Intake and Output Vital Signs (last 24 hours): Temp Pulse Resp BP Pulse Ox 98.1 F 65 20 149/98 H 99 09/19/17 15:58 09/19/17 15:58 09/19/17 15:58 09/19/17 15:58 09/19/17 15:58 Intake and Output: 09/19/17 09/19/17 06:59 18:59 Output Total 400 Balance -400 - Medications Medications: Current Medications Amlodipine Besylate (Norvasc) 10 mg PO DAILY [facility] Last Admin: 09/19/17 08:45 Dose: 10 mg Chlordiazepoxide (Librium) 25 mg PO Q8 [facility] Last Admin: 09/19/17 08:43 Dose: 25 mg Valproate Sodium 500 mg/ (Sodium Chloride) 105 mls @ 105 mls/hr IVPB Q12H JESSICA PRN Reason: As Directed Last Admin: 09/19/17 08:44 Dose: 105 mls/hr Lorazepam (Ativan) 2 mg IVP Q2 PRN PRN Reason: Agitation Last Admin: 09/18/17 02:48 Dose: 2 mg Nitroglycerin (Nitro-Bid 2% Oint) 1 ea TOP Q6H JESSICA Last Admin: 09/19/17 14:15 Dose: 1 ea - Labs Labs: 09/18/17 04:30 09/18/17 04:30 - Constitutional Appears: No Acute Distress - Head Exam Head Exam: NORMAL INSPECTION - Eye Exam Eye Exam: PERRL - ENT Exam ENT Exam: Normal Exam - Neck Exam Neck Exam: Normal Inspection - Respiratory Exam Respiratory Exam: NORMAL BREATHING PATTERN - Cardiovascular Exam Cardiovascular Exam: REGULAR RHYTHM - GI/Abdominal Exam GI & Abdominal Exam: Soft, Normal Bowel Sounds - Extremities Exam Extremities Exam: Normal Inspection - Back Exam Back Exam: NORMAL INSPECTION - Neurological Exam Neurological Exam: Alert Additional comments: more alert , follows commands , no focal motor/sensory deficit - Psychiatric Exam Psychiatric exam: Normal Affect - Skin Skin Exam: Warm Assessment and Plan (1) Status epilepticus Status: Acute (2) Altered mental status Status: Acute (3) Hypertensive emergency Status: Acute (4) Alcohol withdrawal Status: Acute - Assessment and Plan (Free Text) Plan: continue Librium , Valproate , BP control
[2017-09-19] MEDS: PrednisoLONE 1% OPTH SUSP OD SCH (21:12)
[2017-09-20] MEDS: Nitroglycerin 2% Ointment Foilpak UD TOP SCH ×4 (00:34→19:01)
[2017-09-20] MEDS: Valproate 500 MG in Sodium Chloride 0.9% 100 ML IVPB SCH ×2 (06:30→16:59)
[2017-09-20] MEDS: PrednisoLONE 1% OPTH SUSP OD SCH ×4 (08:52→22:19)
--- NOTE | 2017-09-20 13:10 | CP.PCM.PN ---
Subjective - Date & Time of Evaluation Date of Evaluation: 09/20/17 Time of Evaluation: 13:08 - Subjective Subjective: Mr. Bains was seen and examined at the bedside. He is alert, oriented in all spheres. He is able to answer questions and denies any headache, dizziness, lightheadedness, nausea, or vomiting. He further states of his clothes was taken home by family member to be wash. He is able to follow simple commands. Latest valproic level is 68.1 There was no untoward events overnight. Objective - Vital Signs/Intake and Output Vital Signs (last 24 hours): Temp Pulse Resp BP Pulse Ox 97.9 F 58 L 20 146/95 H 98 09/20/17 09:00 09/20/17 08:52 09/20/17 08:07 09/20/17 08:52 09/20/17 08:07 - Medications Medications: Current Medications Amlodipine Besylate (Norvasc) 10 mg PO DAILY [facility] Last Admin: 09/20/17 08:52 Dose: 10 mg Chlordiazepoxide (Librium) 25 mg PO Q8 JESSICA Last Admin: 09/20/17 08:51 Dose: 25 mg Valproate Sodium 500 mg/ (Sodium Chloride) 105 mls @ 105 mls/hr IVPB Q12H JESSICA PRN Reason: As Directed Last Admin: 09/20/17 06:30 Dose: 105 mls/hr Lorazepam (Ativan) 2 mg IVP Q2 PRN PRN Reason: Agitation Last Admin: 09/18/17 02:48 Dose: 2 mg Nitroglycerin (Nitro-Bid 2% Oint) 1 ea TOP Q6H [facility] Last Admin: 09/20/17 06:37 Dose: 1 ea Prednisolone Acetate (Pred Forte 1% Opht Susp) 1 drop OD QID JESSICA Last Admin: 09/20/17 08:52 Dose: 1 drop - Labs Labs: 09/18/17 04:30 09/18/17 04:30 - Constitutional Appears: No Acute Distress - Head Exam Head Exam: NORMAL INSPECTION - Neurological Exam Neurological Exam: Alert, Awake, Oriented x3 Neuro motor strength exam: Left Upper Extremity: 5, Right Upper Extremity: 5, Left Lower Extremity: 5, Right Lower Extremity: 5 Additional comments: Neurological unchanged from previous examination. Assessment and Plan (1) Seizure Assessment & Plan: Case discussed with Dr. Garibay, continue all current medical, physical, occupational therapies. Recommend to monitor valproic level. Status: Acute
--- NOTE | 2017-09-20 15:57 | CP.PCM.PN ---
Subjective - Date & Time of Evaluation Date of Evaluation: 09/20/17 Time of Evaluation: 12:00 - Subjective Subjective: F/U Seizure, AMS More alert Objective - Vital Signs/Intake and Output Vital Signs (last 24 hours): Temp Pulse Resp BP Pulse Ox 97.9 F 80 20 164/96 H 98 09/20/17 09:00 09/20/17 13:20 09/20/17 08:07 09/20/17 13:20 09/20/17 08:07 - Medications Medications: Current Medications Amlodipine Besylate (Norvasc) 10 mg PO DAILY [facility] Last Admin: 09/20/17 08:52 Dose: 10 mg Chlordiazepoxide (Librium) 25 mg PO Q8 [facility] Last Admin: 09/20/17 08:51 Dose: 25 mg Valproate Sodium 500 mg/ (Sodium Chloride) 105 mls @ 105 mls/hr IVPB Q12H JESSICA PRN Reason: As Directed Last Admin: 09/20/17 06:30 Dose: 105 mls/hr Lorazepam (Ativan) 2 mg IVP Q2 PRN PRN Reason: Agitation Last Admin: 09/18/17 02:48 Dose: 2 mg Nitroglycerin (Nitro-Bid 2% Oint) 1 ea TOP Q6H [facility] Last Admin: 09/20/17 13:20 Dose: 1 ea Prednisolone Acetate (Pred Forte 1% Opht Susp) 1 drop OD QID [facility] Last Admin: 09/20/17 13:20 Dose: 1 drop - Labs Labs: 09/18/17 04:30 09/18/17 04:30 - Constitutional Appears: No Acute Distress - Head Exam Head Exam: NORMAL INSPECTION - Eye Exam Eye Exam: PERRL - ENT Exam ENT Exam: Normal Exam - Neck Exam Neck Exam: Normal Inspection - Respiratory Exam Respiratory Exam: NORMAL BREATHING PATTERN - Cardiovascular Exam Cardiovascular Exam: REGULAR RHYTHM - GI/Abdominal Exam GI & Abdominal Exam: Soft, Normal Bowel Sounds - Extremities Exam Extremities Exam: Normal Inspection - Back Exam Back Exam: NORMAL INSPECTION - Neurological Exam Neurological Exam: Alert Additional comments: no focal motor/sensory deficit - Psychiatric Exam Psychiatric exam: Normal Mood - Skin Skin Exam: Warm Assessment and Plan (1) Status epilepticus Status: Acute (2) Altered mental status Status: Acute (3) Hypertensive emergency Status: Acute (4) Alcohol withdrawal Status: Acute - Assessment and Plan (Free Text) Plan: continue current treatment , discharge planning
[2017-09-21] MEDS: Nitroglycerin 2% Ointment Foilpak UD TOP SCH ×4 (01:13→17:28)
[2017-09-21] MEDS: Valproate 500 MG in Sodium Chloride 0.9% 100 ML IVPB SCH ×2 (06:00→17:27)
[2017-09-21] MEDS: PrednisoLONE 1% OPTH SUSP OD SCH ×4 (08:59→21:05)
--- NOTE | 2017-09-21 11:15 | CP.PCM.PN ---
Subjective - Date & Time of Evaluation Date of Evaluation: 09/21/17 Time of Evaluation: 11:13 - Subjective Subjective: Mr. Bains was seen and examined at the bedside. He is alert, oriented. He denies any headache, blurred vision, nausea, or vomiting. He can follow simple commands. He remains on telesitter for patient safety. There was no untoward events overnight. Objective - Vital Signs/Intake and Output Vital Signs (last 24 hours): Temp Pulse Resp BP Pulse Ox 97.8 F 68 20 148/104 H 98 09/21/17 08:35 09/21/17 08:58 09/21/17 08:35 09/21/17 08:58 09/21/17 08:35 - Medications Medications: Current Medications Amlodipine Besylate (Norvasc) 10 mg PO DAILY [facility] Last Admin: 09/21/17 08:58 Dose: 10 mg Chlordiazepoxide (Librium) 25 mg PO Q8 [facility] Last Admin: 09/21/17 08:57 Dose: 25 mg Valproate Sodium 500 mg/ (Sodium Chloride) 105 mls @ 105 mls/hr IVPB Q12H JESSICA PRN Reason: As Directed Last Admin: 09/21/17 06:00 Dose: 105 mls/hr Lorazepam (Ativan) 2 mg IVP Q2 PRN PRN Reason: Agitation Last Admin: 09/18/17 02:48 Dose: 2 mg Nitroglycerin (Nitro-Bid 2% Oint) 1 ea TOP Q6H [facility] Last Admin: 09/21/17 06:14 Dose: 1 ea Prednisolone Acetate (Pred Forte 1% Opht Susp) 1 drop OD QID JESSICA Last Admin: 09/21/17 08:59 Dose: 1 drop - Labs Labs: 09/18/17 04:30 09/18/17 04:30 - Constitutional Appears: No Acute Distress - Head Exam Head Exam: NORMAL INSPECTION - Neurological Exam Neurological Exam: Alert, Awake Neuro motor strength exam: Left Upper Extremity: 5, Right Upper Extremity: 5, Left Lower Extremity: 5, Right Lower Extremity: 5 Additional comments: Neurological unchanged from previous examination. Assessment and Plan (1) Seizure Assessment & Plan: Case discussed with Dr. Sanders, continue all current medical, physical therapies. There is no new recommendations from neurology. Recommend to follow up with a neurologist as an outpatient. Status: Acute
--- NOTE | 2017-09-21 14:57 | CP.PCM.PN ---
Subjective - Date & Time of Evaluation Date of Evaluation: 09/21/17 Time of Evaluation: 10:20 - Subjective Subjective: F/U Seizure, AMS Pt awake, alert, no c/o. Objective - Vital Signs/Intake and Output Vital Signs (last 24 hours): Temp Pulse Resp BP Pulse Ox 97.8 F 89 20 180/118 H 98 09/21/17 08:35 09/21/17 13:23 09/21/17 08:35 09/21/17 13:23 09/21/17 08:35 - Medications Medications: Current Medications Amlodipine Besylate (Norvasc) 10 mg PO DAILY [facility] Last Admin: 09/21/17 08:58 Dose: 10 mg Chlordiazepoxide (Librium) 25 mg PO Q8 [facility] Last Admin: 09/21/17 08:57 Dose: 25 mg Valproate Sodium 500 mg/ (Sodium Chloride) 105 mls @ 105 mls/hr IVPB Q12H JESSICA PRN Reason: As Directed Last Admin: 09/21/17 06:00 Dose: 105 mls/hr Lorazepam (Ativan) 2 mg IVP Q2 PRN PRN Reason: Agitation Last Admin: 09/18/17 02:48 Dose: 2 mg Nitroglycerin (Nitro-Bid 2% Oint) 1 ea TOP Q6H [facility] Last Admin: 09/21/17 12:11 Dose: 1 ea Prednisolone Acetate (Pred Forte 1% Opht Susp) 1 drop OD QID [facility] Last Admin: 09/21/17 12:09 Dose: 1 drop Valsartan (Diovan) 160 mg PO DAILY [facility] Last Admin: 09/21/17 13:23 Dose: 160 mg - Labs Labs: 09/18/17 04:30 09/18/17 04:30 - Constitutional Appears: No Acute Distress - Head Exam Head Exam: NORMAL INSPECTION - Eye Exam Eye Exam: PERRL - ENT Exam ENT Exam: Normal Exam - Neck Exam Neck Exam: Normal Inspection - Respiratory Exam Respiratory Exam: NORMAL BREATHING PATTERN - Cardiovascular Exam Cardiovascular Exam: REGULAR RHYTHM - GI/Abdominal Exam GI & Abdominal Exam: Soft, Normal Bowel Sounds - Extremities Exam Extremities Exam: Normal Inspection - Back Exam Back Exam: NORMAL INSPECTION - Neurological Exam Neurological Exam: Awake Additional comments: No focal motor/sensory deficit - Psychiatric Exam Psychiatric exam: Normal Mood - Skin Skin Exam: Warm Assessment and Plan (1) Status epilepticus Status: Acute (2) Altered mental status Status: Acute (3) Hypertensive emergency Status: Acute (4) Alcohol withdrawal Status: Acute - Assessment and Plan (Free Text) Plan: Continue current tx.
[2017-09-22] MEDS: Nitroglycerin 2% Ointment Foilpak UD TOP SCH ×2 (00:11→06:15)
[2017-09-22] MEDS: Valproate 500 MG in Sodium Chloride 0.9% 100 ML IVPB SCH (05:51)
[2017-09-22 06:27] LABS: HEMOGLOBIN 13.6 g/dL (12.0-18.0); MEAN CELL VOLUME 88.7 fl (80.0-94.0); MEAN CORPUSCULAR HEMOGLOBIN 30.4 pg (27.0-31.0); MEAN CORPUSCULAR HGB CONC 34.3 g/dL (33.0-37.0); RBC 4.47 Mil/uL (4.40-5.90); RED CELL DISTRIBUTION WIDTH 13.8 % (11.5-14.5); WHITE BLOOD COUNT 6.4 K/uL (4.8-10.8)
[2017-09-22 06:44] LABS: CALCIUM 8.6 mg/dL (8.4-10.2)
--- NOTE | 2017-09-22 09:56 | CARD ---
APPROVED REPORT EKG Measurement Heart [id number] <Conclusion> Sinus bradycardia Otherwise normal ECG
[2017-09-22] MEDS: PrednisoLONE 1% OPTH SUSP OD SCH ×4 (10:35→21:20)
--- NOTE | 2017-09-22 15:39 | CP.PCM.PN ---
Subjective - Date & Time of Evaluation Date of Evaluation: 09/22/17 Time of Evaluation: 09:45 - Subjective Subjective: F/U HTN, AMS no AD , Patient's family at bedside Objective - Vital Signs/Intake and Output Vital Signs (last 24 hours): Temp Pulse Resp BP Pulse Ox 97.4 F L 60 20 137/84 98 09/22/17 09:00 09/22/17 12:12 09/22/17 09:00 09/22/17 12:12 09/22/17 09:00 - Medications Medications: Current Medications Amlodipine Besylate (Norvasc) 5 mg PO DAILY [facility] Chlordiazepoxide (Librium) 25 mg PO Q12 [facility] Clonidine HCl (Catapres) 0.1 mg PO BID [facility] Last Admin: 09/22/17 10:36 Dose: 0.1 mg Divalproex Sodium (Depakote Dr(*Bid*)) 500 mg PO BID [facility] Lorazepam (Ativan) 2 mg IVP Q2 PRN PRN Reason: Agitation Last Admin: 09/18/17 02:48 Dose: 2 mg Prednisolone Acetate (Pred Forte 1% Opht Susp) 1 drop OD QID [facility] Last Admin: 09/22/17 10:35 Dose: 1 drop Valsartan (Diovan) 320 mg PO DAILY [facility] Last Admin: 09/22/17 10:35 Dose: 320 mg - Labs Labs: 09/22/17 06:10 09/22/17 06:10 - Constitutional Appears: No Acute Distress - Head Exam Head Exam: NORMAL INSPECTION - Eye Exam Eye Exam: PERRL - ENT Exam ENT Exam: Normal Exam - Neck Exam Neck Exam: Normal Inspection - Respiratory Exam Respiratory Exam: NORMAL BREATHING PATTERN - Cardiovascular Exam Cardiovascular Exam: REGULAR RHYTHM - GI/Abdominal Exam GI & Abdominal Exam: Soft, Normal Bowel Sounds - Extremities Exam Extremities Exam: Normal Inspection - Back Exam Back Exam: NORMAL INSPECTION - Neurological Exam Neurological Exam: Alert, Oriented x3. absent: Motor Sensory Deficit - Psychiatric Exam Psychiatric exam: Normal Mood - Skin Skin Exam: Warm Assessment and Plan (1) Status epilepticus Status: Acute (2) Altered mental status Status: Acute (3) Hypertensive emergency Status: Acute (4) Alcohol withdrawal Status: Acute - Assessment and Plan (Free Text) Plan: BP was High , Bradycardia , Patient treated with Diovan , Clonidine , Norvasc dosis decreased to 5mg, continue Librium , Depakote , monitor BP and heart rate , BUN , Creatinine increasing
[2017-09-22] MEDS: Divalproex 500 mg DR(BID formulation) PO SCH (17:04)
[2017-09-23 06:42] LABS: CALCIUM 8.8 mg/dL (8.4-10.2)
[2017-09-23 06:45] LABS: HEMOGLOBIN 13.9 g/dL (12.0-18.0); MEAN CELL VOLUME 87.9 fl (80.0-94.0); MEAN CORPUSCULAR HEMOGLOBIN 31.1 pg (27.0-31.0); MEAN CORPUSCULAR HGB CONC 35.4 g/dL (33.0-37.0); RBC 4.46 Mil/uL (4.40-5.90); RED CELL DISTRIBUTION WIDTH 13.7 % (11.5-14.5); WHITE BLOOD COUNT 8.1 K/uL (4.8-10.8)
[2017-09-23] MEDS: Divalproex 500 mg DR(BID formulation) PO SCH ×2 (09:13→16:42)
[2017-09-23] MEDS: PrednisoLONE 1% OPTH SUSP OD SCH ×4 (09:14→21:15)
--- NOTE | 2017-09-23 12:23 | CP.PCM.PN ---
Subjective - Date & Time of Evaluation Date of Evaluation: 09/23/17 Time of Evaluation: 12:21 - Subjective Subjective: Mr. Bains was seen and examined at the bedside. He is alert, oriented. He denies any headache, blurred vision, nausea, or vomiting. He claims of being sleepy, but able to follow simple commands. He remains with a telesitter for patient safety. There was no untoward events overnight. Objective - Vital Signs/Intake and Output Vital Signs (last 24 hours): Temp Pulse Resp BP Pulse Ox 97.6 F 56 L 18 147/87 100 09/23/17 08:30 09/23/17 09:14 09/23/17 08:30 09/23/17 09:14 09/23/17 08:30 - Medications Medications: Current Medications Amlodipine Besylate (Norvasc) 5 mg PO DAILY [facility] Last Admin: 09/23/17 09:14 Dose: Not Given Chlordiazepoxide (Librium) 25 mg PO Q12 [facility] Last Admin: 09/23/17 09:15 Dose: 25 mg Clonidine HCl (Catapres) 0.1 mg PO BID [facility] Last Admin: 09/23/17 09:11 Dose: 0.1 mg Divalproex Sodium (Depakote Dr(*Bid*)) 500 mg PO BID [facility] Last Admin: 09/23/17 09:13 Dose: 500 mg Lorazepam (Ativan) 2 mg IVP Q2 PRN PRN Reason: Agitation Last Admin: 09/18/17 02:48 Dose: 2 mg Prednisolone Acetate (Pred Forte 1% Opht Susp) 1 drop OD QID [facility] Last Admin: 09/23/17 12:03 Dose: 1 drop Valsartan (Diovan) 320 mg PO DAILY [facility] Last Admin: 09/23/17 09:14 Dose: 320 mg - Labs Labs: 09/23/17 05:55 09/23/17 05:55 - Constitutional Appears: No Acute Distress - Head Exam Head Exam: NORMAL INSPECTION - Neurological Exam Neurological Exam: Alert, Awake Neuro motor strength exam: Left Upper Extremity: 5, Right Upper Extremity: 5, Left Lower Extremity: 5, Right Lower Extremity: 5 Additional comments: Neurological unchanged from previous examination. Assessment and Plan (1) Seizure Assessment & Plan: Case discussed with Dr. Sanders, continue all current medical, physical, and occupational therapies. Recommend to follow up with an outpatient neurologist upon discharge. Status: Acute
--- NOTE | 2017-09-23 14:34 | CP.PCM.PN ---
Subjective - Date & Time of Evaluation Date of Evaluation: 09/23/17 Time of Evaluation: 13:30 - Subjective Subjective: F/U HTN, AMS, Bradycardia no AD, no SOB, no PERDOMO , no syncope , no C/P Objective - Vital Signs/Intake and Output Vital Signs (last 24 hours): Temp Pulse Resp BP Pulse Ox 97.6 F 56 L 18 147/87 100 09/23/17 08:30 09/23/17 09:14 09/23/17 08:30 09/23/17 09:14 09/23/17 08:30 - Medications Medications: Current Medications Amlodipine Besylate (Norvasc) 5 mg PO DAILY [facility] Last Admin: 09/23/17 09:14 Dose: Not Given Chlordiazepoxide (Librium) 25 mg PO DAILY [facility] Clonidine HCl (Catapres) 0.1 mg PO BID [facility] Last Admin: 09/23/17 09:11 Dose: 0.1 mg Divalproex Sodium (Depakote Dr(*Bid*)) 500 mg PO BID [facility] Last Admin: 09/23/17 09:13 Dose: 500 mg Lorazepam (Ativan) 2 mg IVP Q2 PRN PRN Reason: Agitation Last Admin: 09/18/17 02:48 Dose: 2 mg Prednisolone Acetate (Pred Forte 1% Opht Susp) 1 drop OD QID [facility] Last Admin: 09/23/17 12:03 Dose: 1 drop Valsartan (Diovan) 320 mg PO DAILY [facility] Last Admin: 09/23/17 09:14 Dose: 320 mg - Labs Labs: 09/23/17 05:55 09/23/17 05:55 - Constitutional Appears: No Acute Distress - Head Exam Head Exam: NORMAL INSPECTION - Eye Exam Eye Exam: PERRL - ENT Exam ENT Exam: Normal Exam - Neck Exam Neck Exam: Normal Inspection - Respiratory Exam Respiratory Exam: NORMAL BREATHING PATTERN - Cardiovascular Exam Cardiovascular Exam: Bradycardia - GI/Abdominal Exam GI & Abdominal Exam: Soft, Normal Bowel Sounds - Extremities Exam Extremities Exam: Normal Inspection - Back Exam Back Exam: NORMAL INSPECTION - Neurological Exam Neurological Exam: Alert, Oriented x3 Additional comments: No focal motor/sensory deficit - Psychiatric Exam Psychiatric exam: Normal Mood - Skin Skin Exam: Warm Assessment and Plan (1) Status epilepticus Status: Acute (2) Altered mental status Status: Acute (3) Hypertensive emergency Status: Acute (4) Alcohol withdrawal Status: Acute (5) Bradycardia Status: Acute - Assessment and Plan (Free Text) Plan: DC Norvasc and Clonidine, add Diovan- HCTZ , ECHO , f/u Cardiac consult
--- NOTE | 2017-09-23 16:49 | CP.PCM.CON ---
History of Present Illness - History of Present Illness History of Present Illness: 52 y/o male admitted with seizures cardiology consult called for sinus bradycardia Pt's HR has been ranging 50's - 90's Pt denies dizziness/syncope when the pt gets up and moves around his HR rises appropriately No therapy needed at this time PMH: CRF HTN seizures alcohol abuse drug abuse EKG: sinus bradycardia @ 51 BPM Past Patient History - Infectious Disease Hx of Infectious Diseases: None - Past Medical History & Family History Past Medical History?: Yes - Past Social History Smoking Status: Current Some Days Smoker Alcohol: < 2 Drinks/Day Drugs: Denies Home Situation {Lives}: Homeless - CARDIAC Hx Cardiac Disorders: Yes Hx Hypertension: Yes - PULMONARY Hx Respiratory Disorders: No - NEUROLOGICAL Hx Neurological Disorder: Yes Hx Seizures: Yes - HEENT Hx HEENT Problems: No - RENAL Hx Chronic Kidney Disease: No - ENDOCRINE/METABOLIC Hx Endocrine Disorders: No - HEMATOLOGICAL/ONCOLOGICAL Hx Blood Disorders: Yes Hx Hepatitis C: Yes - INTEGUMENTARY Hx Dermatological Problems: No - MUSCULOSKELETAL/RHEUMATOLOGICAL Hx Musculoskeletal Disorders: No Hx Falls: No - GASTROINTESTINAL Hx Gastrointestinal Disorders: No - GENITOURINARY/GYNECOLOGICAL Hx Genitourinary Disorders: No - PSYCHIATRIC Hx Psychophysiologic Disorder: Yes Hx Substance Use: Yes (previous substance abuse, unknown drugs) - SURGICAL HISTORY Hx Surgeries: No - ANESTHESIA Hx Anesthesia: No Hx Anesthesia Reactions: (unknown) Meds Allergies/Adverse Reactions: Allergies Allergy/AdvReac Type Severity Reaction Status Date / Time No Known Allergies Allergy Verified 10/22/16 17:17 - Medications Medications: Current Medications Chlordiazepoxide (Librium) 25 mg PO DAILY [facility] Divalproex Sodium (Depakote Dr(*Bid*)) 500 mg PO BID [facility] Last Admin: 09/23/17 16:42 Dose: 500 mg Hydrochlorothiazide (Hydrodiuril) 25 mg PO DAILY [facility] Lorazepam (Ativan) 2 mg IVP Q2 PRN PRN Reason: Agitation Last Admin: 09/18/17 02:48 Dose: 2 mg Prednisolone Acetate (Pred Forte 1% Opht Susp) 1 drop OD QID [facility] Last Admin: 09/23/17 16:42 Dose: 1 drop Valsartan (Diovan) 320 mg PO DAILY [facility] Last Admin: 09/23/17 09:14 Dose: 320 mg Results - Vital Signs Recent Vital Signs: Last Vital Signs Temp 98.6 F 09/23/17 16:11 Pulse 61 09/23/17 16:11 Resp 20 09/23/17 16:11 BP 143/93 H 09/23/17 16:11 Pulse Ox 100 09/23/17 16:11 - Labs Result Diagrams: 09/23/17 05:55 09/23/17 05:55 Labs: Laboratory Results - last 24 hr 09/23/17 09/23/17 05:55 05:55 WBC 8.1 RBC 4.46 Hgb 13.9 Hct 39.2 MCV 87.9 MCH 31.1 H MCHC 35.4 RDW 13.7 Plt Count 217 Sodium 138 Potassium 4.2 Chloride 100 Carbon Dioxide 27 Anion Gap 15 BUN 31 H Creatinine 1.6 H Est GFR ( Amer) 56 Est GFR (Non-Af Amer) 46 Random Glucose 93 Calcium 8.8 Assessment & Plan (1) Sinus bradycardia Status: Acute (2) Seizure Status: Acute (3) Drug abuse Status: Acute (4) H/O ETOH abuse Status: Acute (5) Hypertension Status: Acute
--- NOTE | 2017-09-23 18:32 | CARD ---
APPROVED REPORT EXAM: Two-dimensional and M-mode echocardiogram with Doppler and color Doppler. Other Information Quality : ExcellentRhythm : NSR INDICATION Hypertension/HCVD 2D DIMENSIONS IVSd1.63 (0.7-1.1cm)LVDd4.46 (3.9-5.9cm) LVOT Diameter2.19 (1.8-2.4cm)PWd1.31 (0.7-1.1cm) IVSs1.82 (0.8-1.2cm)LVDs2.63 (2.5-4.0cm) FS (%) 41.0 %PWs1.87 (0.8-1.2cm) M-Mode DIMENSIONS Left Atrium (MM)4.09 (2.5-4.0cm)IVSd1.24 (0.7-1.1cm) Aortic Root3.47 (2.2-3.7cm)LVDd4.88 (4.0-5.6cm) Aortic Cusp Exc.2.12 (1.5-2.0cm)PWd1.26 (0.7-1.1cm) IVSs1.76 cmFS (%) 36 % LVDs3.12 (2.0-3.8cm)PWs1.62 cm Mitral Valve MV E Vbbzztju96.3cm/sMV DECEL [id number] A Rlflqjqa79.6cm/s MV NWI45tsX/A ratio1.3MVA (PHT)3.24cm2 TDI Lateral E' Peak V9.53cm/sMedial E' Peak V5.38cm/sE/Lateral E'6.5 E/Medial E'11.6 Pulmonary Valve PV Peak Xmsadkhb48.3cm/s Tricuspid Valve TR Peak Snpszvrh825yi/sRAP [id number] Peak Gr.21mmHg CNFK80clQp LEFT VENTRICLE The left ventricle is normal in size. There is moderate concentric left ventricular hypertrophy on the 2D study. The left ventricular function is normal. The left ventricular ejection fraction is - 70%. There is normal LV segmental wall motion. The left ventricular diastolic function is normal. No left ventricle thrombus noted on this study. There is no ventricular septal defect visualized. There is no left ventricular aneurysm. There is no mass noted in the left ventricle. RIGHT VENTRICLE The right ventricle is normal size. There is normal right ventricular wall thickness. The right ventricular systolic function is normal. ATRIA The left atrium is mildly dilated. There is no thrombus suspected in the left atrium. The right atrium is mildly dilated. The interatrial septum is intact with no evidence for an atrial septal defect. AORTIC VALVE The aortic valve is normal in structure. No aortic regurgitation is present. There is no aortic valvular stenosis. MITRAL VALVE The mitral valve is normal in structure. There is no evidence of mitral valve prolapse. There is no mitral valve stenosis. There is no mitral valve regurgitation noted. TRICUSPID VALVE The tricuspid valve is normal in structure. There is mild tricuspid regurgitation. Right ventricular systolic pressure is estimated at 32 mmHg. There is no tricuspid valve prolapse or vegetation. There is no tricuspid valve stenosis. PULMONIC VALVE The pulmonic valve is not well visualized. There is trivial pulmonic valvular regurgitation. GREAT VESSELS The aortic root is normal in size. The IVC is normal in size and collapses >50% with inspiration. PERICARDIAL EFFUSION The pericardium appears normal. There is no pleural effusion. <Conclusion> The left ventricle is normal in size. There is moderate concentric left ventricular hypertrophy on the 2D study. The left ventricular function is normal. The left ventricular ejection fraction is - 70%. The left atrium and right atrium are mildly enlarged. The mitral, aortic and tricuspid valves are normal. There is mild tricuspid regurgitation.
[2017-09-24] MEDS: Divalproex 500 mg DR(BID formulation) PO SCH ×2 (09:25→16:51)
[2017-09-24] MEDS: PrednisoLONE 1% OPTH SUSP OD SCH ×4 (09:27→22:29)
--- NOTE | 2017-09-24 10:45 | CP.PCM.PN ---
Subjective - Date & Time of Evaluation Date of Evaluation: 09/24/17 Time of Evaluation: 10:40 - Subjective Subjective: Mr. Bains was seen and examined at the bedside. He is very sleepy, but able to answer questions appropriately. He denies any headache, dizziness, lightheadedness, blurred vision. He is able to follow simple commands. He remains with a telesitter for patient safety. There was no untoward events overnight. Objective - Vital Signs/Intake and Output Vital Signs (last 24 hours): Temp Pulse Resp BP Pulse Ox 98.2 F 60 18 139/97 H 100 09/24/17 08:13 09/24/17 08:13 09/24/17 08:13 09/24/17 08:13 09/24/17 08:13 - Medications Medications: Current Medications Chlordiazepoxide (Librium) 25 mg PO DAILY [facility] Last Admin: 09/24/17 09:26 Dose: 25 mg Divalproex Sodium (Depakote Dr(*Bid*)) 500 mg PO BID [facility] Last Admin: 09/24/17 09:25 Dose: 500 mg Hydrochlorothiazide (Hydrodiuril) 25 mg PO DAILY [facility] Last Admin: 09/24/17 09:26 Dose: 25 mg Lorazepam (Ativan) 2 mg IVP Q2 PRN PRN Reason: Agitation Last Admin: 09/18/17 02:48 Dose: 2 mg Prednisolone Acetate (Pred Forte 1% Opht Susp) 1 drop OD QID [facility] Last Admin: 09/24/17 09:27 Dose: 1 drop Valsartan (Diovan) 320 mg PO DAILY [facility] Last Admin: 09/24/17 09:26 Dose: 320 mg - Labs Labs: 09/23/17 05:55 09/23/17 05:55 - Constitutional Appears: No Acute Distress - Head Exam Head Exam: NORMAL INSPECTION - Neurological Exam Neurological Exam: Alert, Awake Neuro motor strength exam: Left Upper Extremity: 5, Right Upper Extremity: 5, Left Lower Extremity: 5, Right Lower Extremity: 5 Additional comments: Neurological unchanged from previous examination. Assessment and Plan (1) Seizure Assessment & Plan: Case discussed with Dr. Sanders, continue all current medical, physical therapies. There is no new recommendations from neurology. Status: Acute
[2017-09-24 12:15] LABS: CALCIUM 9.1 mg/dL (8.4-10.2)
--- NOTE | 2017-09-24 19:02 | CP.PCM.PN ---
Subjective - Date & Time of Evaluation Date of Evaluation: 09/24/17 Time of Evaluation: 09:30 - Subjective Subjective: F/U HTN, AMS, Seizure. Pt awake, no A/D, no CP, no headache. Objective - Vital Signs/Intake and Output Vital Signs (last 24 hours): Temp Pulse Resp BP Pulse Ox 98.4 F 67 18 156/100 H 99 09/24/17 16:40 09/24/17 16:40 09/24/17 16:40 09/24/17 16:40 09/24/17 16:40 - Medications Medications: Current Medications Chlordiazepoxide (Librium) 25 mg PO DAILY [facility] Last Admin: 09/24/17 09:26 Dose: 25 mg Divalproex Sodium (Depakote Dr(*Bid*)) 500 mg PO BID [facility] Last Admin: 09/24/17 16:51 Dose: 500 mg Hydrochlorothiazide (Hydrodiuril) 25 mg PO DAILY [facility] Last Admin: 09/24/17 09:26 Dose: 25 mg Lorazepam (Ativan) 2 mg IVP Q2 PRN PRN Reason: Agitation Last Admin: 09/18/17 02:48 Dose: 2 mg Prednisolone Acetate (Pred Forte 1% Opht Susp) 1 drop OD QID [facility] Last Admin: 09/24/17 16:51 Dose: 1 drop Valsartan (Diovan) 320 mg PO DAILY [facility] Last Admin: 09/24/17 09:26 Dose: 320 mg - Labs Labs: 09/23/17 05:55 09/24/17 11:53 - Constitutional Appears: No Acute Distress - Head Exam Head Exam: NORMAL INSPECTION - Eye Exam Eye Exam: PERRL - ENT Exam ENT Exam: Normal Exam - Neck Exam Neck Exam: Normal Inspection - Respiratory Exam Respiratory Exam: NORMAL BREATHING PATTERN - Cardiovascular Exam Cardiovascular Exam: REGULAR RHYTHM - GI/Abdominal Exam GI & Abdominal Exam: Soft, Normal Bowel Sounds - Extremities Exam Extremities Exam: Normal Inspection - Back Exam Back Exam: NORMAL INSPECTION - Neurological Exam Neurological Exam: Alert, Oriented x3 Additional comments: No focal motor sensory deficit. - Psychiatric Exam Psychiatric exam: Normal Mood - Skin Skin Exam: Warm Assessment and Plan (1) Status epilepticus Status: Acute (2) Altered mental status Status: Acute (3) Hypertensive emergency Status: Acute (4) Alcohol withdrawal Status: Acute (5) Bradycardia Status: Acute - Assessment and Plan (Free Text) Plan: Continue current medications, Cardiology consult appreciated.
[2017-09-25] MEDS: Divalproex 500 mg DR(BID formulation) PO SCH ×2 (09:05→17:36)
[2017-09-25] MEDS: PrednisoLONE 1% OPTH SUSP OD SCH ×4 (09:06→21:40)
--- NOTE | 2017-09-25 10:31 | CP.PCM.PN ---
Subjective - Date & Time of Evaluation Date of Evaluation: 09/25/17 Time of Evaluation: 10:28 - Subjective Subjective: Mr. Bains was seen and examined at the bedside. He is sleepy, but able to verbalize person, place, and time. He denies any headache, lightheadedness, nausea, or vomiting. He is able to follow simple commands. He remains on telesitter for patient safety.There was no untoward events overnight. Objective - Vital Signs/Intake and Output Vital Signs (last 24 hours): Temp Pulse Resp BP Pulse Ox 98.1 F 49 L 20 143/87 97 09/25/17 08:10 09/25/17 08:10 09/25/17 08:10 09/25/17 08:10 09/25/17 08:10 - Medications Medications: Current Medications Chlordiazepoxide (Librium) 25 mg PO DAILY [facility] Last Admin: 09/25/17 09:15 Dose: 25 mg Divalproex Sodium (Depakote Dr(*Bid*)) 500 mg PO BID [facility] Last Admin: 09/25/17 09:05 Dose: 500 mg Hydrochlorothiazide (Hydrodiuril) 25 mg PO DAILY [facility] Last Admin: 09/25/17 09:06 Dose: 25 mg Lorazepam (Ativan) 2 mg IVP Q2 PRN PRN Reason: Agitation Last Admin: 09/18/17 02:48 Dose: 2 mg Prednisolone Acetate (Pred Forte 1% Opht Susp) 1 drop OD QID [facility] Last Admin: 09/25/17 09:06 Dose: 1 drop Valsartan (Diovan) 320 mg PO DAILY [facility] Last Admin: 09/25/17 09:05 Dose: 320 mg - Labs Labs: 09/23/17 05:55 09/24/17 11:53 - Constitutional Appears: No Acute Distress - Head Exam Head Exam: NORMAL INSPECTION - Neurological Exam Neurological Exam: Alert, Awake, Oriented x3 Neuro motor strength exam: Left Upper Extremity: 5, Right Upper Extremity: 5, Left Lower Extremity: 5, Right Lower Extremity: 5 Additional comments: He is sleepy but neurological unchanged from previous examination. Assessment and Plan (1) Seizure Assessment & Plan: Case discussed with Dr. Sanders, continue all current medical and physical therapies. Recommend to monitor level of depakote as needed and follow up with a neurologist upon discharge. Status: Acute
--- NOTE | 2017-09-25 16:40 | CP.PCM.PN ---
Subjective - Date & Time of Evaluation Date of Evaluation: 09/25/17 Time of Evaluation: 09:20 - Subjective Subjective: F/U AMS/ HTN / Seizure. Pt awake, no A/D, able to answer questions. Objective - Vital Signs/Intake and Output Vital Signs (last 24 hours): Temp Pulse Resp BP Pulse Ox 98.2 F 63 18 143/93 H 99 09/25/17 16:24 09/25/17 16:24 09/25/17 16:24 09/25/17 16:24 09/25/17 16:24 - Medications Medications: Current Medications Amlodipine Besylate (Norvasc) 5 mg PO DAILY [facility] Chlordiazepoxide (Librium) 25 mg PO DAILY [facility] Last Admin: 09/25/17 09:15 Dose: 25 mg Divalproex Sodium (Depakote Dr(*Bid*)) 500 mg PO BID [facility] Last Admin: 09/25/17 09:05 Dose: 500 mg Hydrochlorothiazide (Hydrodiuril) 25 mg PO DAILY [facility] Last Admin: 09/25/17 09:06 Dose: 25 mg Lorazepam (Ativan) 2 mg IVP Q2 PRN PRN Reason: Agitation Last Admin: 09/18/17 02:48 Dose: 2 mg Prednisolone Acetate (Pred Forte 1% Opht Susp) 1 drop OD QID [facility] Last Admin: 09/25/17 09:06 Dose: 1 drop Valsartan (Diovan) 320 mg PO DAILY [facility] Last Admin: 09/25/17 09:05 Dose: 320 mg - Labs Labs: 09/23/17 05:55 09/24/17 11:53 - Constitutional Appears: No Acute Distress - Head Exam Head Exam: NORMAL INSPECTION - Eye Exam Eye Exam: PERRL - ENT Exam ENT Exam: Normal Exam - Neck Exam Neck Exam: Normal Inspection - Respiratory Exam Respiratory Exam: NORMAL BREATHING PATTERN - Cardiovascular Exam Cardiovascular Exam: REGULAR RHYTHM - GI/Abdominal Exam GI & Abdominal Exam: Soft, Normal Bowel Sounds - Extremities Exam Extremities Exam: Normal Inspection - Back Exam Back Exam: NORMAL INSPECTION - Neurological Exam Neurological Exam: Alert, Oriented x3 Additional comments: No focal motor/sensory deficit. - Psychiatric Exam Psychiatric exam: Normal Mood - Skin Skin Exam: Warm Assessment and Plan (1) Status epilepticus Status: Acute (2) Altered mental status Status: Acute (3) Hypertensive emergency Status: Acute (4) Alcohol withdrawal Status: Acute (5) Bradycardia Status: Acute - Assessment and Plan (Free Text) Plan: Continue Idris Griffin and rest of Tx.
[2017-09-26 07:23] LABS: HEMOGLOBIN 14.5 g/dL (12.0-18.0); MEAN CELL VOLUME 89.1 fl (80.0-94.0); MEAN CORPUSCULAR HEMOGLOBIN 30.9 pg (27.0-31.0); MEAN CORPUSCULAR HGB CONC 34.7 g/dL (33.0-37.0); RBC 4.69 Mil/uL (4.40-5.90); RED CELL DISTRIBUTION WIDTH 13.9 % (11.5-14.5); WHITE BLOOD COUNT 7.9 K/uL (4.8-10.8)
[2017-09-26] MEDS: Divalproex 500 mg DR(BID formulation) PO SCH ×2 (09:11→17:32)
[2017-09-26] MEDS: PrednisoLONE 1% OPTH SUSP OD SCH ×4 (09:11→21:25)
--- NOTE | 2017-09-26 15:39 | CP.PCM.PN ---
Subjective - Date & Time of Evaluation Date of Evaluation: 09/26/17 Time of Evaluation: 12:10 - Subjective Subjective: F/U AMS, HTN, Seizure. Pt awake, alert, no A/D, no dizziness, no headache. Objective - Vital Signs/Intake and Output Vital Signs (last 24 hours): Temp Pulse Resp BP Pulse Ox 97.5 F L 94 H 20 154/97 H 100 09/26/17 08:22 09/26/17 08:22 09/26/17 08:22 09/26/17 08:22 09/26/17 08:22 - Medications Medications: Current Medications Amlodipine Besylate (Norvasc) 5 mg PO DAILY [facility] Last Admin: 09/26/17 09:11 Dose: 5 mg Chlordiazepoxide (Librium) 25 mg PO DAILY [facility] Last Admin: 09/26/17 09:11 Dose: 25 mg Divalproex Sodium (Depakote Dr(*Bid*)) 500 mg PO BID [facility] Last Admin: 09/26/17 09:11 Dose: 500 mg Hydrochlorothiazide (Hydrodiuril) 25 mg PO DAILY [facility] Last Admin: 09/25/17 09:06 Dose: 25 mg Lorazepam (Ativan) 2 mg IVP Q2 PRN PRN Reason: Agitation Last Admin: 09/18/17 02:48 Dose: 2 mg Prednisolone Acetate (Pred Forte 1% Opht Susp) 1 drop OD QID [facility] Last Admin: 09/26/17 13:51 Dose: 1 drop Valsartan (Diovan) 320 mg PO DAILY [facility] Last Admin: 09/25/17 09:05 Dose: 320 mg - Labs Labs: 09/26/17 05:30 09/26/17 05:30 - Constitutional Appears: No Acute Distress - Head Exam Head Exam: NORMAL INSPECTION - Eye Exam Eye Exam: PERRL - ENT Exam ENT Exam: Normal Exam - Neck Exam Neck Exam: Normal Inspection - Respiratory Exam Respiratory Exam: NORMAL BREATHING PATTERN - Cardiovascular Exam Cardiovascular Exam: REGULAR RHYTHM - GI/Abdominal Exam GI & Abdominal Exam: Soft, Normal Bowel Sounds - Extremities Exam Extremities Exam: Normal Inspection - Back Exam Back Exam: NORMAL INSPECTION - Neurological Exam Neurological Exam: Alert, Oriented x3 Additional comments: No focal motor sensory deficit. - Psychiatric Exam Psychiatric exam: Normal Mood - Skin Skin Exam: Warm Assessment and Plan (1) Status epilepticus Status: Acute (2) Altered mental status Status: Acute (3) Hypertensive emergency Status: Acute (4) Alcohol withdrawal Status: Acute (5) Bradycardia Status: Acute - Assessment and Plan (Free Text) Plan: Continue Jett Llanos and rest of Tx.
[2017-09-27] MEDS: Divalproex 500 mg DR(BID formulation) PO SCH ×2 (10:20→17:03)
[2017-09-27] MEDS: PrednisoLONE 1% OPTH SUSP OD SCH ×4 (10:20→21:57)
--- NOTE | 2017-09-27 17:58 | CP.PCM.PN ---
Subjective - Date & Time of Evaluation Date of Evaluation: 09/27/17 - Subjective Subjective: F/U AMS, HTN, Seizure. Pt awake, feels better, no A/D, no dizziness. Objective - Vital Signs/Intake and Output Vital Signs (last 24 hours): Temp Pulse Resp BP Pulse Ox 98.4 F 63 18 128/84 97 09/27/17 16:14 09/27/17 16:14 09/27/17 16:14 09/27/17 16:14 09/27/17 16:14 - Medications Medications: Current Medications Amlodipine Besylate (Norvasc) 5 mg PO DAILY [facility] Last Admin: 09/27/17 10:20 Dose: 5 mg Chlordiazepoxide (Librium) 25 mg PO DAILY [facility] Last Admin: 09/27/17 10:23 Dose: 25 mg Divalproex Sodium (Depakote Dr(*Bid*)) 500 mg PO BID [facility] Last Admin: 09/27/17 17:03 Dose: 500 mg Hydrochlorothiazide (Hydrodiuril) 25 mg PO DAILY [facility] Last Admin: 09/25/17 09:06 Dose: 25 mg Lorazepam (Ativan) 2 mg IVP Q2 PRN PRN Reason: Agitation Last Admin: 09/18/17 02:48 Dose: 2 mg Prednisolone Acetate (Pred Forte 1% Opht Susp) 1 drop OD QID [facility] Last Admin: 09/27/17 17:03 Dose: 1 drop Valsartan (Diovan) 320 mg PO DAILY [facility] Last Admin: 09/25/17 09:05 Dose: 320 mg - Labs Labs: 09/26/17 05:30 09/26/17 05:30 - Constitutional Appears: No Acute Distress - Head Exam Head Exam: NORMAL INSPECTION - Eye Exam Eye Exam: PERRL - ENT Exam ENT Exam: Normal Exam - Neck Exam Neck Exam: Normal Inspection - Respiratory Exam Respiratory Exam: NORMAL BREATHING PATTERN - Cardiovascular Exam Cardiovascular Exam: REGULAR RHYTHM - GI/Abdominal Exam GI & Abdominal Exam: Soft, Normal Bowel Sounds - Extremities Exam Extremities Exam: Normal Inspection - Back Exam Back Exam: NORMAL INSPECTION - Neurological Exam Neurological Exam: Alert, Oriented x3 Additional comments: No focal motor sensory /deficit. - Psychiatric Exam Psychiatric exam: Normal Mood - Skin Skin Exam: Warm Assessment and Plan (1) Status epilepticus Status: Acute (2) Altered mental status Status: Acute (3) Hypertensive emergency Status: Acute (4) Alcohol withdrawal Status: Acute (5) Bradycardia Status: Acute - Assessment and Plan (Free Text) Plan: Continue with Jett Alva and rest of Tx.
[2017-09-28] MEDS: Divalproex 500 mg DR(BID formulation) PO SCH ×2 (10:17→17:18)
[2017-09-28] MEDS: PrednisoLONE 1% OPTH SUSP OD SCH ×3 (11:18→17:18)
--- NOTE | 2017-09-28 12:03 | CP.PCM.PN ---
Subjective - Date & Time of Evaluation Date of Evaluation: 09/28/17 Time of Evaluation: 12:02 - Subjective Subjective: Ms. Bains was seen and examined at the bedside. He is alert, oriented in all spheres. He denies any headache, dizziness, lightheadedness, nausea, or vomiting. He is able to ambulate within his room in steady gait, however dragging his left foot. He remains on telesitter for patient safety. There was no untoward events overnight. Objective - Vital Signs/Intake and Output Vital Signs (last 24 hours): Temp Pulse Resp BP Pulse Ox 97.7 F 61 19 149/94 H 100 09/28/17 08:43 09/28/17 10:17 09/28/17 08:43 09/28/17 10:17 09/28/17 08:43 - Medications Medications: Current Medications Amlodipine Besylate (Norvasc) 5 mg PO DAILY [facility] Last Admin: 09/28/17 10:17 Dose: 5 mg Chlordiazepoxide (Librium) 25 mg PO DAILY [facility] Last Admin: 09/28/17 11:24 Dose: 25 mg Divalproex Sodium (Depakote Dr(*Bid*)) 500 mg PO BID [facility] Last Admin: 09/28/17 10:17 Dose: 500 mg Hydrochlorothiazide (Hydrodiuril) 25 mg PO DAILY [facility] Last Admin: 09/25/17 09:06 Dose: 25 mg Lorazepam (Ativan) 2 mg IVP Q2 PRN PRN Reason: Agitation Last Admin: 09/18/17 02:48 Dose: 2 mg Prednisolone Acetate (Pred Forte 1% Opht Susp) 1 drop OD QID [facility] Last Admin: 09/28/17 11:18 Dose: 1 drop Valsartan (Diovan) 320 mg PO DAILY [facility] Last Admin: 09/25/17 09:05 Dose: 320 mg - Labs Labs: 09/26/17 05:30 09/26/17 05:30 - Constitutional Appears: No Acute Distress - Head Exam Head Exam: NORMAL INSPECTION - Neurological Exam Neurological Exam: Alert, Awake Neuro motor strength exam: Left Upper Extremity: 5, Right Upper Extremity: 5, Left Lower Extremity: 5, Right Lower Extremity: 5 Additional comments: Neurological unchanged from previous examination. Assessment and Plan (1) Seizure Assessment & Plan: Case discussed with Dr. Garibay, continue all current medical, physical therapies. Recommend to follow up with an outpatient neurologist to monitor his seizure. Status: Acute
--- NOTE | 2017-09-28 14:21 | CP.PCM.PCO ---
Assessment/Plan - Assessment/Plan Assessment (Free Text): Pt stable, able to ambulate in room. Per PT notes, pt ambulating 75 feet with cane and at his baseline and per insurance denied rehab. Rx given for cane and all meds as per med rec. Pt seen and cleared for d/c to long-term by Dr. Blevins. Pt to f/u as outpt with neuro and also f/u in 1 week at the [facility].
--- NOTE | 2017-09-28 16:09 | CP.PCM.PN ---
Subjective - Date & Time of Evaluation Date of Evaluation: 09/28/17 Objective - Vital Signs/Intake and Output Vital Signs (last 24 hours): Temp Pulse Resp BP Pulse Ox 97.7 F 61 19 149/94 H 100 09/28/17 08:43 09/28/17 10:17 09/28/17 08:43 09/28/17 10:17 09/28/17 08:43 - Medications Medications: Current Medications Amlodipine Besylate (Norvasc) 5 mg PO DAILY [facility] Last Admin: 09/28/17 10:17 Dose: 5 mg Chlordiazepoxide (Librium) 25 mg PO DAILY [facility] Last Admin: 09/28/17 11:24 Dose: 25 mg Divalproex Sodium (Depakote Dr(*Bid*)) 500 mg PO BID [facility] Last Admin: 09/28/17 10:17 Dose: 500 mg Hydrochlorothiazide (Hydrodiuril) 25 mg PO DAILY [facility] Last Admin: 09/25/17 09:06 Dose: 25 mg Lorazepam (Ativan) 2 mg IVP Q2 PRN PRN Reason: Agitation Last Admin: 09/18/17 02:48 Dose: 2 mg Prednisolone Acetate (Pred Forte 1% Opht Susp) 1 drop OD QID [facility] Last Admin: 09/28/17 11:18 Dose: 1 drop Valsartan (Diovan) 320 mg PO DAILY [facility] Last Admin: 09/25/17 09:05 Dose: 320 mg - Labs Labs: 09/26/17 05:30 09/26/17 05:30 Assessment and Plan (1) Status epilepticus Status: Acute (2) Altered mental status Status: Acute (3) Hypertensive emergency Status: Acute (4) Alcohol withdrawal Status: Acute (5) Bradycardia Status: Acute
[2017-09-28 16:45] VITALS: BP 106/64; PULSE 72; RESP 20; TEMP 98.3; O2SAT 96
--- NOTE | 2017-09-28 17:59 | CP.PCM.DIS ---
Provider - Provider Date of Admission: 09/14/17 15:46 Attending physician: Aries Blevins MD Diagnosis - Discharge Diagnosis (1) Status epilepticus Status: Acute Priority: High (2) Altered mental status Status: Acute Priority: High (3) Hypertensive emergency Status: Acute Priority: High (4) Alcohol withdrawal Status: Acute (5) Bradycardia Status: Acute Hospital Course - Lab Results Lab Results: Micro Results 09/18/17 19:03 Nose MRSA Culture (Admit) - Final MRSA NOT DETECTED 09/14/17 06:59 Naris MRSA Culture (Admit) - Final MRSA NOT DETECTED Most Recent Lab Values WBC 7.9 K/uL (4.8-10.8) 09/26/17 05:30 RBC 4.69 Mil/uL (4.40-5.90) 09/26/17 05:30 Hgb 14.5 g/dL (12.0-18.0) 09/26/17 05:30 Hct 41.8 % (35.0-51.0) 09/26/17 05:30 MCV 89.1 fl (80.0-94.0) 09/26/17 05:30 MCH 30.9 pg (27.0-31.0) 09/26/17 05:30 MCHC 34.7 g/dL (33.0-37.0) 09/26/17 05:30 RDW 13.9 % (11.5-14.5) 09/26/17 05:30 Plt Count 261 K/uL (130-400) 09/26/17 05:30 MPV 8.7 fl (7.2-11.7) 09/16/17 04:15 Neut % (Auto) 83.8 % (50.0-75.0) H 09/16/17 04:15 Lymph % (Auto) 7.8 % (20.0-40.0) L 09/16/17 04:15 [place] % (Auto) 7.5 % (0.0-10.0) 09/16/17 04:15 Eos % (Auto) 0.7 % (0.0-4.0) 09/16/17 04:15 Baso % (Auto) 0.2 % (0.0-2.0) 09/16/17 04:15 Neut # (Auto) 10.4 K/uL (1.8-7.0) H 09/16/17 04:15 Lymph # (Auto) 1.0 K/uL (1.0-4.3) 09/16/17 04:15 [place] # (Auto) 0.9 K/uL (0.0-0.8) H 09/16/17 04:15 Eos # (Auto) 0.1 K/uL (0.0-0.7) 09/16/17 04:15 Baso # (Auto) 0.0 K/uL (0.0-0.2) 09/16/17 04:15 Neutrophils % (Manual) 84 % (42-75) H 09/16/17 04:15 Lymphocytes % (Manual) 8 % (20-50) L 09/16/17 04:15 Monocytes % (Manual) 8 % (0-10) 09/16/17 04:15 Platelet Estimate Normal (NORMAL) 09/16/17 04:15 RBC Morphology Normal (NORMAL) 09/16/17 04:15 Sodium 141 mmol/l (132-148) 09/26/17 05:30 Potassium 4.3 MMOL/L (3.6-5.0) 09/26/17 05:30 Chloride 97 mmol/L (98-107) L 09/26/17 05:30 Carbon Dioxide 30 mmol/L (22-30) 09/26/17 05:30 Anion Gap 18 (10-20) 09/26/17 05:30 BUN 36 mg/dl (9-20) H 09/26/17 05:30 Creatinine 1.8 mg/dl (0.8-1.5) H 09/26/17 05:30 Est GFR ( Amer) 49 09/26/17 05:30 Est GFR (Non-Af Amer) 40 09/26/17 05:30 POC Glucose (mg/dL) 135 mg/dL (65-110) H 09/14/17 13:35 Random Glucose 82 mg/dL (75-110) 09/26/17 05:30 Calcium 9.0 mg/dL (8.4-10.2) 09/26/17 05:30 Magnesium 2.0 MG/DL (1.6-2.3) 09/14/17 13:30 Total Bilirubin 1.0 mg/dl (0.2-1.3) 09/16/17 04:15 AST 27 U/L (17-59) 09/16/17 04:15 ALT 29 U/L (21-72) 09/16/17 04:15 Alkaline Phosphatase 74 U/L (38-126) 09/16/17 04:15 Total Creatine Kinase 260 U/L (55-170) H 09/15/17 04:50 Total Protein 8.8 G/DL (6.3-8.2) H 09/16/17 04:15 Albumin 4.8 g/dL (3.5-5.0) 09/16/17 04:15 Globulin 4.1 gm/dL (2.2-3.9) H 09/16/17 04:15 Albumin/Globulin Ratio 1.2 (1.0-2.1) 09/16/17 04:15 Urine Color Yellow (YELLOW) 09/14/17 17:25 Urine Clarity Clear (Clear) 09/14/17 17:25 Urine pH 6.0 (5.0-8.0) 09/14/17 17:25 Ur Specific [place] 1.012 (1.003-1.030) 09/14/17 17:25 Urine Protein 100 mg/dL (NEGATIVE) 09/14/17 17:25 Urine Glucose (UA) Neg mg/dL (Normal) 09/14/17 17:25 Urine Ketones Negative mg/dL (NEGATIVE) 09/14/17 17:25 Urine Blood Negative (NEGATIVE) 09/14/17 17:25 Urine Nitrate Negative (NEGATIVE) 09/14/17 17:25 Urine Bilirubin Negative (NEGATIVE) 09/14/17 17:25 Urine Urobilinogen 0.2-1.0 mg/dL (0.2-1.0) 09/14/17 17:25 Ur Leukocyte Esterase Neg John/uL (Negative) 09/14/17 17:25 Urine RBC (Auto) 1 /hpf (0-3) 09/14/17 17:25 Urine Microscopic WBC 1 /hpf (0-5) 09/14/17 17:25 Ur Squamous Epith Cells < 1 /hpf (0-5) 09/14/17 17:25 Urine Opiates Screen Negative (NEGATIVE) 09/14/17 17:25 Urine Methadone Screen Negative (NEGATIVE) 09/14/17 17:25 Ur Barbiturates Screen Negative (NEGATIVE) 09/14/17 17:25 Phenytoin < 3.0 ug/ML (10-20) L 09/14/17 15:59 Valproic Acid 68.1 ug/mL (50.0-100.0) 09/18/17 04:30 Ur Phencyclidine Scrn Negative (NEGATIVE) 09/14/17 17:25 Ur Amphetamines Screen Negative (NEGATIVE) 09/14/17 17:25 U Benzodiazepines Scrn Negative (NEGATIVE) 09/14/17 17:25 U Oth Cocaine Metabols Negative (NEGATIVE) 09/14/17 17:25 U Cannabinoids Screen Negative (NEGATIVE) 09/14/17 17:25 Alcohol, Quantitative < 10 mg/dl (0-10) 09/14/17 13:30 Discharge Exam - Head Exam Head Exam: NORMAL INSPECTION Discharge Plan - Discharge Medications Prescriptions: Divalproex [Depakote DR(*BID*)] 500 mg PO BID #60 tcp Valsartan [Diovan] 320 mg PO DAILY #30 tab hydroCHLOROthiazide [Hydrodiuril] 25 mg PO DAILY #30 tab amLODIPine [Norvasc] 5 mg PO DAILY #30 tab PrednisoLONE 1% [Pred Forte 1% Opht Susp] 1 drop OD QID #1 bottle - Follow Up Plan Condition: CRITICAL Disposition: HOME/ ROUTINE Instructions: Hypertension (DC), Altered Mental Status (GEN) Additional Instructions: hacer aileen con dewitt primario y con el neurologo 7-[address] Robledo sep 30 a las 10am Referrals: Zhao Robledo MD [Family Provider] - Peewee Sanders MD [Medical Doctor] -
== END 2017-09-28 17:24 | disposition home or self-care (01) | DRG 543 ==
LOC: H.ER 13:06 → H.ERHOLD 15:46 → H.ICU/CCU 21:18 → H.MEDSURG1 09-18 18:22
PROVIDERS: ADMIT Internal Medicine Pulmonary Disease; ATTEND Internal Medicine Pulmonary Disease
DX: I16.1 Hypertensive emergency (principal); N17.9 Acute kidney failure, unspecified; F10.239 Alcohol dependence with withdrawal, unspecified; B19.20 Unspecified viral hepatitis C without hepatic coma; E86.0 Dehydration; G40.901 Epilepsy, unspecified, not intractable, with status epilepticus; Z59.0 Homelessness; F17.200 Nicotine dependence, unspecified, uncomplicated; Z78.1 Physical restraint status; R41.0 Disorientation, unspecified; R00.1 Bradycardia, unspecified